=== PATIENT | male | born 1985 | race Two or more races ===

== ENCOUNTER 2020-01-04 15:40 | Inpatient (IN) | payer MEDICAID ==
[~2020-01-04] VITALS: Ht 177.8 cm; Wt 88.0 kg
--- NOTE | 2020-01-04 16:00 | NUR ---
ED Nurse Note: pt was brought in by ambulance from home d/t tonic clonic seizure that lasted for 10 secs today at 1445. Pt is AOx4, calm and cooperative, noted to be vomiting upon arrival. Per EMS, (-) head nor oral trauma, but pt had loss of consciousness. Pt's VSS, on RA, afebrile on triage. Pt arrived with an IV on LT forearm 18G. Placed on bed, safety measures in placed, seizure pads on bilateral rails. will continue to monitor.
--- NOTE | 2020-01-04 16:01 | NUR ---
ED Nurse Note: pt was taken to CT on stable condition.
--- NOTE | 2020-01-04 16:02 | Emergency Room Report ---
History of Present Illness General Chief Complaint: Seizure Source: Patient Present Illness HPI Disclaimer: Please note that this report is being documented using DRAGON technology. This can lead to erroneous entry secondary to incorrect interpretation by the dictating instrument. HPI: Is a 34-year-old male presenting to emergency department after suspected seizure. 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 He has no recollection of the events but was told by staff that he had generalized convulsions was unconscious for several minutes. Unknown whether or not there was a head injury. EMS found him awake and alert. He denies prior history of seizure though states he had another loss of conscious many years ago without a formal diagnosis. He drinks alcohol daily and has been on a bit of a binge over the past week. Last alcohol intake approximately 24 hours ago. Denies prior history of alcohol withdrawal seizures or delirium tremens. Denies other drug use. Denies medical history but states he is "prediabetic." Glucose was elevated on arrival. Patient also reports ulcerations and infections over the toes. He states there is from prolonged standing and walking. Has not yet sought medical attention. Denies recent fever, chills, cough, shortness of breath, chest pain, palpitations. He reports nausea but no vomiting. Reports minor generalized headache without vision changes. 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 No scalp or face hematomas, lacerations or abrasions. No signs of external trauma. EOMI. PERRLA. Visual dumont are full. No nystagmus. Facial expressions are symmetrical. No facial droop. Cardiovascular: RRR. S1 and S2 normal. No murmur appreciated Resp: Normal work of breathing. No cough, wheezing or crackles appreciated Abdomen: Abdomen is soft, nondistended. Nontender Skin: Ulcerations over the third and fourth toe on the left foot as well as over the pad of the left great toe with surrounding edema, erythema and areas of purulence. MSK: Normal tone and bulk. Moving all extremities. No obvious deformity. There is no drift in the upper or lower extremities bilaterally. Neuro: Awake and alert. Mentating appropriately. Facial expression symmetrical. No dysarthria, no ataxia on [id number] or vgpk-jl-[id number] testing. Sensation to light touch is intact over the upper and lower extremities. The patient has intact speech with good repetition, comprehension. Fund of knowledge is full. Procedures Critical Care Time Critical Care Time Total critical care time: Approximately 31 minutes Due to a high probability of clinically significant, life threatening deterioration, the patient required the highest level of preparedness to intervene emergently and I personally spent this critical care time directly and personally managing the patient. This critical care time included obtaining a history, examining the patient, pulse oximetry, ordering and reviewing studies , ordering treatments, evaluating response to treatment and updating management plan as needed, frequent reassessment and discussion with other providers as well as arranging for ultimate disposition. This critical to care time was performed to assess and manage the high probability of life-threatening deterioration that could result in multiorgan failure. This critical care time is separate from the separately billable procedures and treating other patients. Medical Decision Making Diagnostic Impression: Primary Impression: Seizure Additional Impressions: Alcohol abuse Cellulitis of lower extremity ER Course Is a 34-year-old male presenting for evaluation of seizure. Differential includes was not limited to new onset seizure, intracranial mass, electrolyte abnormality, alcohol withdrawal, substance abuse, cellulitis, arrhythmia, syncopal episode, dehydration to name a few. He is returned to his neurologic baseline without focal deficits. Unknown whether or not there was a head injury and given that the patient's first-time seizure will obtain CT scan of the head as well as broad labs including tox screen. Lower extremities appear to have cellulitis though will obtain x-ray to rule out gas-forming lesions. Patient will be started on antibiotics, Keppra, benzodiazepines for suspected alcohol withdrawal seizure. He will require admission. 1800: Labs returned largely within normal limits though the patient did have opiates in his system which he now admits to taking Vicodin from a friend for the pain in his foot. Radiologist concern for possible osteomyelitis the patient had blood cultures drawn and was given vancomycin in addition to the ceftriaxone. Dr. Canela consulted regarding wound care and evaluation for osteomyelitis. CT scan of the head returned unremarkable. Labs Show normal white count, electrolytes and renal function within normal limits. AST elevated consistent with his alcohol abuse history. Bilirubin slightly elevated as is alkaline phosphatase. Urine shows white cells but few bacteria. Patient will be admitted for evaluation of lower extremity wounds with possible osteomyelitis, new onset versus alcohol withdrawal seizures. He was given Keppra and Ativan in the ED. Will admit to telemetry to panel physician, Dr. Isidro Laboratory Tests Test 01/04/20 15:55 01/04/20 16:30 White Blood Count 5.0 K/UL (4.8-10.8) Red Blood Count 4.11 M/UL (4.70-6.10) L Hemoglobin 13.8 G/DL (14.2-18.0) L Hematocrit 40.1 % (42.0-52.0) L Mean Corpuscular Volume 98 FL (80-99) Mean Corpuscular Hemoglobin 33.5 PG (27.0-31.0) H Mean Corpuscular Hemoglobin Concent 34.4 G/DL (32.0-36.0) Red Cell Distribution Width 13.6 % (11.6-14.8) Platelet Count 89 K/UL (150-450) L Mean Platelet Volume 9.6 FL (6.5-10.1) Neutrophils (%) (Auto) 85.3 % (45.0-75.0) H Lymphocytes (%) (Auto) 8.1 % (20.0-45.0) L Monocytes (%) (Auto) 4.6 % (1.0-10.0) Eosinophils (%) (Auto) 0.4 % (0.0-3.0) Basophils (%) (Auto) 1.5 % (0.0-2.0) Sodium Level 133 MMOL/L (136-145) L Potassium Level 4.0 MMOL/L (3.5-5.1) Chloride Level 97 MMOL/L (98-107) L Carbon Dioxide Level 28 MMOL/L (21-32) Anion Gap 8 mmol/L (5-15) Blood Urea Nitrogen 12 mg/dL (7-18) Creatinine 1.0 MG/DL (0.55-1.30) Estimated Glomerular Filtration Rate > 60 mL/min (>60) Glucose Level 197 MG/DL (74-106) H Calcium Level 8.8 MG/DL (8.5-10.1) Total Bilirubin 1.1 MG/DL (0.2-1.0) H Direct Bilirubin 0.5 MG/DL (0.0-0.3) H Aspartate Amino Transferase (AST) 113 U/L (15-37) H Alanine Aminotransferase (ALT) 70 U/L (12-78) Alkaline Phosphatase 252 U/L (46-116) H Total Protein 9.3 G/DL (6.4-8.2) H Albumin 3.3 G/DL (3.4-5.0) L Globulin 6.0 g/dL Albumin/Globulin Ratio 0.6 (1.0-2.7) L Serum Alcohol < 3 mg/dL Urine Color Yellow Urine Appearance Slightly cloudy Urine pH 8 (4.5-8.0) Urine Specific [place] 1.030 (1.005-1.035) Urine Protein 3+ (NEGATIVE) H Urine Glucose (UA) Negative (NEGATIVE) Urine Ketones 1+ (NEGATIVE) H Urine Blood 3+ (NEGATIVE) H Urine Nitrite Negative (NEGATIVE) Urine Bilirubin Negative (NEGATIVE) Urine Urobilinogen 1 MG/DL (0.0-1.0) H Urine Leukocyte Esterase 1+ (NEGATIVE) H Urine RBC 2-4 /HPF (0 - 0) H Urine WBC 5-10 /HPF (0 - 0) H Urine Squamous Epithelial Cells Occasional /LPF Urine Bacteria Few /HPF (NONE) Urine Sperm Many /LPF (NONE) Urine Opiates Screen Positive (NEGATIVE) H Urine Barbiturates Screen Negative (NEGATIVE) Phencyclidine (PCP) Screen Negative (NEGATIVE) Urine Amphetamines Screen Negative (NEGATIVE) Urine Benzodiazepines Screen Negative (NEGATIVE) Urine Cocaine Screen Negative (NEGATIVE) Urine Marijuana (THC) Screen Negative (NEGATIVE) EKG Diagnostic Results EKG Time: 15:50 Rate: normal Rhythm: NSR ST Segments: no acute changes Other Impression Sinus rhythm, normal axis, normal intervals, no ST segment changes. Inferior Q waves. Rhythm Strip Diag. Results Rhythm Strip Time: 15:50 EP Interpretation: yes Rate: 80s Rhythm: NSR, no PVC's, no ectopy Other X-Ray Diagnostic Results Other X-Ray Diagnostic Results : X-Ray ordered: Right foot # of Views/Limited Vs Complete: Complete Indication: Pain EP Interpretation: Yes Interpretation: no dislocation, other - Evidence of subacute fracture in the distal phalanx third toe, no obvious subcutaneous gas Impression: Other - Subacute fracture, soft tissue swelling, no gas appreciated Electronically Signed by: Electronically signed by Dr. Donaldo Angelo CT/MRI/US Diagnostic Results CT/MRI/US Diagnostic Results : Impression CT head Impression: No evidence of acute intracranial hemorrhage, mass effect or cortical edema. MRI may be obtained for more sensitive evaluation as clinically indicated. Dictated By: Bienvenido Wakefield M.D. Electronically Signed By: Bienvenido Wakefield M.D. Signed Date/Time 01/04/20 [id number] CC: Donaldo Angelo MD Last Vital Signs Date Time Temp Pulse Resp B/P (MAP) Pulse Ox O2 Delivery O2 Flow Rate FiO2 01/04/20 15:48 97.7 107 18 139/99 (112) 98 Room Air Disposition: ADMITTED INPATIENT Condition: Serious Scripts No Active Prescriptions or Reported Meds Donaldo Angelo MD Jan 04, 2020 16:02
[2020-01-04 16:07] VITALS: BP 139/99
[2020-01-04 16:07] LABS: HEMATOCRIT 40.1 % (42.0-52.0); HEMOGLOBIN 13.8 G/DL (14.2-18.0); MEAN CORPUSCULAR VOLUME 98 FL (80-99); PLATELET COUNT 89 K/UL (150-450); RED BLOOD COUNT 4.11 M/UL (4.70-6.10); RED CELL DISTRIBUTION WIDTH 13.6 % (11.6-14.8)
[2020-01-04] MEDS ORDERED: LORazepam 1mg tab ORAL ONE (16:15)
[2020-01-04] MEDS ORDERED: cefTRIAXone 1 GM in NS 55 ML IVPB ONE (16:15)
[2020-01-04] MEDS ORDERED: levETIRAcetam 1,000mg/NS100ml 100 ML IVPB ONE (16:15)
--- NOTE | 2020-01-04 16:15 | NUR ---
ED Nurse Note: x-ray at bedside.
--- NOTE | 2020-01-04 16:16 | Diagnostic Imaging Report ---
Indication: Seizure Technique: Continuous helical CT scanning of the head was performed utilizing automated exposure control without intravenous contrast material. Axial and coronal reconstructions were obtained. Comparison: None CT dose: Total DLP 1021.9 mGycm; CTDI vol 53.4 mGy Findings: There is no acute intracranial hemorrhage, mass effect or cortical edema. The ventricles, cisterns and sulci are within normal limits for age. Visualized mastoid air cells and paranasal sinuses are unremarkable. No focal lesions of the bony calvarium or soft tissues of the scalp are seen. Impression: No evidence of acute intracranial hemorrhage, mass effect or cortical edema. MRI may be obtained for more sensitive evaluation as clinically indicated. The CT scanner at [facility] is accredited by the [employer] and the scans are performed using protocols designed to limit radiation exposure to as low as reasonably achievable to attain images of sufficient resolution adequate for diagnostic evaluation.
[2020-01-04 16:34] LABS: ANION GAP 8 mmol/L (5-15); BASOPHILS % (AUTO) 1.5 % (0.0-2.0); BLOOD UREA NITROGEN 12 mg/dL (7-18); CALCIUM 8.8 MG/DL (8.5-10.1); CARBON DIOXIDE 28 MMOL/L (21-32); CHLORIDE 97 MMOL/L (98-107); EOSINOPHILS % (AUTO) 0.4 % (0.0-3.0); LYMPHOCYTES % (AUTO) 8.1 % (20.0-45.0); MONOCYTES % (AUTO) 4.6 % (1.0-10.0); NEUTROPHILS % (AUTO) 85.3 % (45.0-75.0); SODIUM 133 MMOL/L (136-145)
--- NOTE | 2020-01-04 16:37 | NUR ---
ED Nurse Note: noted swelling on bilateral lower extremites, LT foot toe noted with swelling and pus, non-draining.
[2020-01-04 16:41] LABS: APPEARANCE,URINE SLIGHTLY CLOUDY; BILIRUBIN, URINE NEGATIVE (NEGATIVE); GLUCOSE, URINE (UA) NEGATIVE (NEGATIVE); KETONES,URINE 1+ (NEGATIVE); LEUKOCYTE ESTERASE ,URINE 1+ (NEGATIVE); NITRITE,URINE NEGATIVE (NEGATIVE); PH,URINE 8 (4.5-8.0); PROTEIN,URINE 3+ (NEGATIVE); UROBILINOGEN,URINE 1 MG/DL (0.0-1.0)
[2020-01-04 16:45] LABS: ALANINE AMINOTRANSFERASE 70 U/L (12-78); ALBUMIN 3.3 G/DL (3.4-5.0); ALBUMIN/GLOBULIN RATIO 0.6 (1.0-2.7); ALKALINE PHOSPHATASE 252 U/L (46-116); ASPARTATE AMINO TRANSFERASE 113 U/L (15-37); BILIRUBIN,TOTAL 1.1 MG/DL (0.2-1.0)
--- NOTE | 2020-01-04 16:45 | Diagnostic Imaging Report ---
Indication: Foot pain Technique: XRAY Foot Complete R Comparison: None Findings: Extensive atherosclerotic vascular calcifications. There is swelling of the third digit. There is abnormal fragmentation of the third distal phalanx. There is no radiopaque foreign body. Lisfranc alignment of the foot is maintained. IMPRESSION: Swelling of the third digit with abnormal fragmentation of the third distal phalanx which may represent sequela of injury or infection/osteomyelitis. Correlation with history is recommended. Consider further evaluation with MRI as clinically indicated. Extensive atherosclerotic vascular calcifications.
[2020-01-04 16:52] LABS: BILIRUBIN,DIRECT 0.5 MG/DL (0.0-0.3)
[2020-01-04 16:57] LABS: COLOR,URINE YELLOW
[2020-01-04] MEDS ORDERED: Vancomycin 1 GM in NS 275 ML IVPB ONE (17:15)
--- NOTE | 2020-01-04 17:47 | NUR ---
ED Nurse Note: culture collected, sent to labs.
[2020-01-04 17:51] VITALS: BP 132/91
--- NOTE | 2020-01-04 18:58 | NUR ---
TRANSFER TO TELEMETRY UNIT: Patient transferred to Telemetry Unit as ordered, per Dr. Isidro. Report given to JONATHON Echeverria. Belongings and medications given to receiving nurse. Family and or S/O informed of transfer. Pt was transferred on stable condition.
--- NOTE | 2020-01-04 19:29 | NUR ---
HAND-OFF: Report given to Brittany rn. Endorsed patient and report.
--- NOTE | 2020-01-04 19:30 | NUR ---
NURSE NOTES: Received pt and report from JONATHON MUHAMMAD. Observed pt resting in bed with both eyes closed; arousable to voice. Pt is A/Ox4. monitoring analyst is in placed, IV site intact, asymptomatic, and patent. Seizure precaution noted; side rails padded, oxygen and suction at bedside. Bed is in the lowest position and locked. Call light and bedside table is within reach. No seizures or signs/symptoms of acute distress noted at this time. Will contact Dr. Isidro for admission orders.
[2020-01-04 20:00] VITALS: BP 127/67
--- NOTE | 2020-01-04 20:56 | NUR ---
NURSE NOTES: Received admission orders from Dr Isidro. Will not and carry out.
[2020-01-04] MEDS ORDERED: LORazepam Inj 2mg/ml 1ml IV PRN (21:15)
--- NOTE | 2020-01-04 21:47 | NUR ---
NURSE NOTES: Dr Isidro notified about stat venous duplex study. Per venous duplex Mansi crow, if pt was recently admitted, per protocol the stat venous duplex will be done in the am. Pt asymptomatic at this time. Will monitor pt.
[2020-01-05] VITALS: BP 133/76
[2020-01-05 04:00] VITALS: BP 140/89
[2020-01-05] MEDS: Vancomycin 1.25gm/NS Premix q24h IVPB SCH ×2 (04:23→17:45)
[2020-01-05] MEDS: NovoLOG Insulin Flexpen SUBQ SCH ×4 (06:30→21:00)
--- NOTE | 2020-01-05 07:16 | NUR ---
HAND-OFF: Report given to JONATHON Mg and JONATHON Singh, endorsed plan of care.
[2020-01-05 07:24] LABS: HEMATOCRIT 39.8 % (42.0-52.0); HEMOGLOBIN 13.2 G/DL (14.2-18.0); MEAN CORPUSCULAR VOLUME 99 FL (80-99); PLATELET COUNT 98 K/UL (150-450); RED BLOOD COUNT 4.04 M/UL (4.70-6.10); WHITE BLOOD COUNT 5.7 K/UL (4.8-10.8)
--- NOTE | 2020-01-05 07:36 | NUR ---
NURSE NOTES: Received pt and report from Brittany and JONATHON Thomas. Observed pt resting in bed; arousable to voice. Pt is A/Ox4. Seizure precaution noted; side rails padded, oxygen and suction at bedside. Bed is in the lowest position and locked. Call light and bedside table is within reach. No signs/symptoms of acute distress noted at this time.
[2020-01-05 07:50] LABS: ALANINE AMINOTRANSFERASE 61 U/L (12-78); ALBUMIN 2.9 G/DL (3.4-5.0); ALBUMIN/GLOBULIN RATIO 0.5 (1.0-2.7); ALKALINE PHOSPHATASE 212 U/L (46-116); ANION GAP 8 mmol/L (5-15); ASPARTATE AMINO TRANSFERASE 98 U/L (15-37); BILIRUBIN,TOTAL 0.9 MG/DL (0.2-1.0); BLOOD UREA NITROGEN 7 mg/dL (7-18); CALCIUM 8.7 MG/DL (8.5-10.1); CARBON DIOXIDE 26 MMOL/L (21-32); CHLORIDE 103 MMOL/L (98-107); CREATININE 0.9 MG/DL (0.55-1.30); POTASSIUM 3.4 MMOL/L (3.5-5.1); SODIUM 137 MMOL/L (136-145)
[2020-01-05 08:00] VITALS: BP 106/67
[2020-01-05] MEDS: HYDROcodone/Acetamin 5/325 tab ORAL PRN ×3 (08:51→21:55)
--- NOTE | 2020-01-05 09:45 | History and Physical Report ---
DATE OF ADMISSION: 01/04/2020 REASON FOR ADMISSION: Alcoholic-related seizures, cellulitis, possible osteomyelitis. HISTORY OF PRESENT ILLNESS: This is a 34-year-old male brought in for suspected seizure. 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 The patient does admit to alcohol use. No loss of consciousness. No head trauma. The patient has been bingeing last week. The patient notes that he may be a prediabetic. On arrival, the patient is otherwise stable. The patient had no seizures overnight. PAST MEDICAL HISTORY: Notable for prediabetes, alcohol use. PAST SURGICAL HISTORY: Denies. ALLERGIES: None reported. SOCIAL HISTORY: Does admit to daily alcohol use. Works in a liquor store. PHYSICAL EXAMINATION: GENERAL: Well-developed male, comfortable at present. VITAL SIGNS: Stable. LUNGS: Otherwise clear. CARDIAC: S1 and S2. Regular rate and rhythm. ABDOMEN: Otherwise soft, nontender. EXTREMITIES: No edema. LABORATORY DATA: Reviewed. DIAGNOSTIC DATA: X-rays of the foot shows swelling of the third digit with abnormal fragmentation with concern for possible osteomyelitis. Head CT is otherwise negative. IMPRESSION: Alcoholic-related seizures, postseizure pain, possible osteomyelitis, possible alcohol withdrawal. RECOMMENDATION: Monitor for seizures. Ativan p.r.n. IV antibiotics for now. We will obtain MRI of the foot to confirm concern for osteo. ID evaluation and surgical evaluation as needed. We will follow clinically for further changes. Jaya Isidro M.D. DR: IRMA JOB#: [id number] CC:
--- NOTE | 2020-01-05 10:09 | Diagnostic Imaging Report ---
Indication: Leg edema Technique: Venous Duplex Scan Wojciech Leg Comparison: None. Findings: Bilateral duplex and compression ultrasound of the lower cervical veins demonstrates the femoral and popliteal veins to be normal in caliber and normally compressible bilaterally. There is no evidence of thrombosis. Normal respiratory variation and augmentation is noted. The demonstrated calf veins also demonstrate normal duplex evaluation and compressibility. Impression: Normal. No evidence of lower extremity deep vein thrombosis.
[2020-01-05 12:00] VITALS: BP 129/67
--- NOTE | 2020-01-05 13:58 | Consultation ---
History of Present Illness General Date patient seen: Jan 05, 2020 Reason for Hospitalization: Seizure Present Illness HPI This is a pleasant 34-year-old male presenting to emergency department after suspected seizure. Patient works as a managing broker in a liquor store states he was at work when suddenly he had a loss of conscious. He has no recollection of the events but was told by staff that he had generalized convulsions was unconscious for several minutes. Unknown whether or not there was a head injury. EMS found him awake and alert. He denies prior history of seizure though states he had another loss of conscious many years ago without a formal diagnosis. He drinks alcohol daily and has been on a bit of a binge over the past week. Last alcohol intake approximately 24 hours ago. Denies prior history of alcohol withdrawal seizures or delirium tremens. Denies other drug use. Denies medical history but states he is "prediabetic." Glucose was elevated on arrival. Patient also reports ulcerations and infections over the toes. He states there is from prolonged standing and walking. Has not yet sought medical attention. Denies recent fever, chills, cough, shortness of breath, chest pain, palpitations. He reports nausea but no vomiting. Reports minor generalized headache without vision changes. surgery called toe valuate and assist with care. patient seen, chart reviewed, patient examined. Allergies: Coded Allergies: No Known Allergies (Unverified , 01/04/20) COVID-19 Screening Contact w/high risk pt: No Experienced COVID-19 symptoms?: No Medication History No Active Prescriptions or Reported Meds Patient History History Provided By: Patient, PMD Healthcare decision maker Resuscitation status Advanced Directive on File Past Medical/Surgical History Past Medical/Surgical History: (1) Cellulitis of lower extremity (2) Alcohol abuse (3) Seizure Review of Systems Review of Symptoms General ROS: no weight loss or fever Psychological ROS: no depression or mood changes, no memory loss Ophthalmic ROS: no visual changes or eye irritation ENT ROS: no nasal congestion, hearing loss, dizziness Allergy and Immunology ROS: no allergic symptoms or urticaria Hematological and Lymphatic ROS: no swollen glands, unusual bleeding or bruising Endocrine ROS: no polyuria, polydipsia, weight changes, temperature intolerance Respiratory ROS: no cough, shortness of breath, or wheezing Cardiovascular ROS: no chest pain or dyspnea on exertion Gastrointestinal ROS: denies abdominal pain, bright red blood in stool. Musculoskeletal ROS: no myalgias or arthralgias Neurological ROS: no TIA or stroke symptoms Dermatological ROS: no new or changing skin lesions, rashes or pruritis Physical Exam Physical Exam General appearance: alert, cooperative, no distress, appears stated age Head: Normocephalic, without obvious abnormality, atraumatic Eyes: conjunctivae/corneas clear. PERRL, EOM's intact. Fundi benign Throat: Lips, mucosa, and tongue normal. Teeth and gums normal Neck: supple, symmetrical, trachea midline, no adenopathy, thyroid: not enlarged, symmetric, no tenderness/mass/nodules, no carotid bruit and no JVD Lungs: clear to auscultation bilaterally Heart: regular rate and rhythm, S1, S2 normal, no murmur, click, rub or gallop Abdomen: soft, non-tender. Bowel sounds normal. No masses, no organomegaly Extremities: extremities left foot with cellulitis. pulses okay. decreased sensation. ulcer on plantar aspect. no abscess. no drainage Pulses: 2+ and symmetric Skin: Skin color, texture, turgor normal. No rashes or lesions Neurologic: Grossly normal Last 24 Hour Vital Signs Date Time Temp Pulse Resp B/P (MAP) Pulse Ox O2 Delivery O2 Flow Rate FiO2 01/05/20 12:00 97.7 18 129/67 (87) 96 01/05/20 12:00 69 01/05/20 09:21 97.7 01/05/20 09:00 Room Air 01/05/20 08:00 99.0 70 20 106/67 (80) 95 01/05/20 08:00 70 01/05/20 04:00 81 01/05/20 04:00 98.8 86 20 140/89 (106) 96 01/05/20 00:00 98.5 80 18 133/76 (95) 97 01/05/20 00:00 74 01/04/20 21:00 Room Air 01/04/20 20:00 97.8 88 20 127/67 (87) 96 01/04/20 20:00 63 01/04/20 19:24 Room Air 01/04/20 18:58 97.7 78 20 130/90 98 Room Air 01/04/20 17:51 97.7 81 20 132/91 98 Room Air 01/04/20 16:07 107 18 Room Air 01/04/20 16:07 97.7 18 139/99 98 Room Air 01/04/20 15:48 97.7 107 18 139/99 (112) 98 Room Air Intake and Output 01/04/20 01/05/20 19:00 07:00 Intake Total 155 ml 950 ml Output Total 1000 ml Balance 155 ml -50 ml Intake Oral 150 ml IV Total 155 ml 800 ml Output Urine Total 1000 ml Laboratory Tests Test 01/04/20 15:55 01/04/20 16:30 01/04/20 21:02 01/05/20 06:30 White Blood Count 5.0 K/UL (4.8-10.8) 5.7 K/UL (4.8-10.8) Red Blood Count 4.11 M/UL (4.70-6.10) L 4.04 M/UL (4.70-6.10) L Hemoglobin 13.8 G/DL (14.2-18.0) L 13.2 G/DL (14.2-18.0) L Hematocrit 40.1 % (42.0-52.0) L 39.8 % (42.0-52.0) L Mean Corpuscular Volume 98 FL (80-99) 99 FL (80-99) Mean Corpuscular Hemoglobin 33.5 PG (27.0-31.0) H 32.8 PG (27.0-31.0) H Mean Corpuscular Hemoglobin Concent 34.4 G/DL (32.0-36.0) 33.2 G/DL (32.0-36.0) Red Cell Distribution Width 13.6 % (11.6-14.8) 13.0 % (11.6-14.8) Platelet Count 89 K/UL (150-450) L 98 K/UL (150-450) L Mean Platelet Volume 9.6 FL (6.5-10.1) 8.6 FL (6.5-10.1) Neutrophils (%) (Auto) 85.3 % (45.0-75.0) H % (45.0-75.0) Lymphocytes (%) (Auto) 8.1 % (20.0-45.0) L % (20.0-45.0) Monocytes (%) (Auto) 4.6 % (1.0-10.0) % (1.0-10.0) Eosinophils (%) (Auto) 0.4 % (0.0-3.0) % (0.0-3.0) Basophils (%) (Auto) 1.5 % (0.0-2.0) % (0.0-2.0) Sodium Level 133 MMOL/L (136-145) L 137 MMOL/L (136-145) Potassium Level 4.0 MMOL/L (3.5-5.1) 3.4 MMOL/L (3.5-5.1) L Chloride Level 97 MMOL/L (98-107) L 103 MMOL/L (98-107) Carbon Dioxide Level 28 MMOL/L (21-32) 26 MMOL/L (21-32) Anion Gap 8 mmol/L (5-15) 8 mmol/L (5-15) Blood Urea Nitrogen 12 mg/dL (7-18) 7 mg/dL (7-18) Creatinine 1.0 MG/DL (0.55-1.30) 0.9 MG/DL (0.55-1.30) Estimat Glomerular Filtration Rate > 60 mL/min (>60) > 60 mL/min (>60) Glucose Level 197 MG/DL (74-106) H 90 MG/DL (74-106) # Calcium Level 8.8 MG/DL (8.5-10.1) 8.7 MG/DL (8.5-10.1) Total Bilirubin 1.1 MG/DL (0.2-1.0) H 0.9 MG/DL (0.2-1.0) Direct Bilirubin 0.5 MG/DL (0.0-0.3) H Aspartate Amino Transf (AST/SGOT) 113 U/L (15-37) H 98 U/L (15-37) H Alanine Aminotransferase (ALT/SGPT) 70 U/L (12-78) 61 U/L (12-78) Alkaline Phosphatase 252 U/L (46-116) H 212 U/L (46-116) H Total Protein 9.3 G/DL (6.4-8.2) H 8.5 G/DL (6.4-8.2) H Albumin 3.3 G/DL (3.4-5.0) L 2.9 G/DL (3.4-5.0) L Globulin 6.0 g/dL 5.6 g/dL Albumin/Globulin Ratio 0.6 (1.0-2.7) L 0.5 (1.0-2.7) L Serum Alcohol < 3 mg/dL Urine Color Yellow Urine Appearance Slightly cloudy Urine pH 8 (4.5-8.0) Urine Specific [place] 1.030 (1.005-1.035) Urine Protein 3+ (NEGATIVE) H Urine Glucose (UA) Negative (NEGATIVE) Urine Ketones 1+ (NEGATIVE) H Urine Blood 3+ (NEGATIVE) H Urine Nitrite Negative (NEGATIVE) Urine Bilirubin Negative (NEGATIVE) Urine Urobilinogen 1 MG/DL (0.0-1.0) H Urine Leukocyte Esterase 1+ (NEGATIVE) H Urine RBC 2-4 /HPF (0 - 0) H Urine WBC 5-10 /HPF (0 - 0) H Urine Squamous Epithelial Cells Occasional /LPF Urine Bacteria Few /HPF (NONE) Urine Sperm Many /LPF (NONE) Urine Opiates Screen Positive (NEGATIVE) H Urine Barbiturates Screen Negative (NEGATIVE) Phencyclidine (PCP) Screen Negative (NEGATIVE) Urine Amphetamines Screen Negative (NEGATIVE) Urine Benzodiazepines Screen Negative (NEGATIVE) Urine Cocaine Screen Negative (NEGATIVE) Urine Marijuana (THC) Screen Negative (NEGATIVE) POC Whole Blood Glucose 99 MG/DL (74-106) Differential Total Cells Counted 100 Neutrophils % (Manual) 70 % (45-75) Lymphocytes % (Manual) 14 % (20-45) L Monocytes % (Manual) 12 % (1-10) H Eosinophils % (Manual) 3 % (0-3) Basophils % (Manual) 1 % (0-2) Band Neutrophils 0 % (0-8) Platelet Estimate Decreased L Platelet Morphology Normal Red Blood Cell Morphology Normal Test 01/05/20 06:32 POC Whole Blood Glucose Pending Height (Feet): 5 Height (Inches): 10.00 Weight (Pounds): 203 Medications Current Medications Medications (Trade) Dose Ordered Sig/Adria Route PRN Reason Start Time Stop Time Status Last Admin Dose Admin Acetaminophen (Tylenol) 650 mg Q4H PRN ORAL MILD PAIN/FEVER >100.5 01/04/20 21:15 02/03/20 21:14 01/05/20 04:36 Acetaminophen/ Hydrocodone Bitart ([place] 5/325) 1 tab Q4H PRN ORAL Moderate Pain (Pain Scale 4-6) 01/05/20 05:30 01/12/20 05:29 01/05/20 08:51 Al Hydroxide/Mg Hydroxide (Mylanta) 30 ml Q4H PRN ORAL heartburn 01/04/20 21:15 02/03/20 21:14 Dextrose (Dextrose 50%) 25 ml Q30M PRN IV Hypoglycemia 01/04/20 21:15 04/03/20 21:14 Dextrose (Dextrose 50%) 50 ml Q30M PRN IV Hypoglycemia 01/04/20 21:15 04/03/20 21:14 Heparin Sodium (Porcine) (Heparin 5000 units/ml) 5,000 units EVERY 12 HOURS SUBQ 01/05/20 21:00 02/19/20 20:59 UNV Insulin Aspart (NovoLOG) BEFORE MEALS AND HS SUBQ 01/05/20 06:30 04/04/20 06:29 Lorazepam (Ativan 2mg/ml 1ml) 1 mg Q1H PRN IV For Seizures 01/04/20 21:15 01/11/20 21:14 Ondansetron HCl (Zofran) 4 mg Q6H PRN IVP Nausea & Vomiting 01/04/20 21:15 02/03/20 21:14 Pantoprazole (Protonix) 40 mg DAILY ORAL 01/05/20 09:00 02/04/20 08:59 01/05/20 08:24 Sodium Chloride 1,000 ml @ 100 mls/hr Q10H IV 01/04/20 22:00 02/03/20 21:59 01/05/20 08:24 Vancomycin HCl (Vanco pharmacy to dose) 1 ea DAILY PRN MISC Per rx protocol 01/04/20 21:15 02/03/20 21:14 Vancomycin/Sodium Chloride 275 ml @ 183.333 mls/hr Q12H IVPB 01/05/20 05:00 01/10/20 04:59 01/05/20 04:23 Assessment/Plan Problem List: (1) Cellulitis of lower extremity Assessment & Plan: left foot with cellulitis. pulses okay. decreased sensation. ulcer on plantar aspect. no abscess. no drainage Pt presented on admission with multiple ulcerations to both feet.Ulcer Plantar L 1st metatarsal has punched out appearance, is michael with dry necrotic borders( L)1cm x (W)0.9cm. No odor or exudate noted. No erythema or fluctuance periwound. Pt stated wound previously had thick callused cap which pt stated he attempted to shave off with Callus removing device. Dry eschar noted to tips of L 2nd 3rd and 4th metatarsals. Dry eschar with slit noted to plantar L Hallux area. NO odor exudate or erythema noted. R 3rd metatarsal with joint deformity and full thickness ulcer at head of metatarsal(L)1.4cm x (W)1.6cm. Base of wound is necrotic centrally with surrounding michael base with scattered necrosis and an area of slough along plantar aspect of metatarsal. Borders are irregular and michael, extending along web space and along plantar aspect to base of metatarsal. No odor or exudate noted during wound assessment but dry exudate noted periwound. Also at base of R3rd metatarsal smaller wound that is michael and moist noted.(L)0.4cm x (W) 0.5cm. Pt stated having wounds for unspecified amt of time. Dry eschar noted to lateral R 1st metatarsal. No erythema ,exudate, or fluctuance periwound. A second,smaller ulcer noted to plantar base of R 1st metatarsal that is moist and michael . No erythema, odor,or fluctuance periwound. Dry eschar noted to plantar R hallux area. Pt cited multiple traumas to both feet over an unspecified period and admits to being lax in care of feet and inspecting his feet despite being aware of risks with Having diabetes and Neuropathy. Pt educated of risks vs benefits of good foot care, wearing proper footwear and inspecting feet daily.Pt also advised against removing calluses with sharp devices. Tx.Plan:Apply Betadine to wounds both feet. Cover with ABD Pads and wrap each foot with Kerlix Daily and prn. ICD Codes: L03.119 - Cellulitis of unspecified part of limb SNOMED: 209314958 (2) Alcohol abuse ICD Codes: F10.10 - Alcohol abuse, uncomplicated SNOMED: 62226783 (3) Seizure ICD Codes: R56.9 - Unspecified convulsions SNOMED: [id number] Antonio Canela Jan 05, 2020 13:58
[2020-01-05] MEDS ORDERED: Gadavist 7.5mMol/7.5ml vial IV PRN (14:15)
--- NOTE | 2020-01-05 14:35 | Diagnostic Imaging Report ---
Indication: Reason For Exam: PAIN Technique: MRI of the right forefoot performed utilizing T1 and STIR images in 3 months. Comparison: None. Findings: Examination demonstrates decreased fat signal in the soft tissues of the third toe. There is soft tissue swelling. Abnormal low T1 signal and high T2 signal is noted in the third middle and distal phalanges. The third proximal phalanx appears. The remaining osseous structures are normal. Marrow signal is otherwise normal. Remainder of exam is unremarkable. Impression: Osteomyelitis of the third middle and distal phalanges with extensive cellulitis of the third toe.
--- NOTE | 2020-01-05 15:00 | Consultation ---
DATE OF CONSULTATION: 01/05/2020 INFECTIOUS DISEASE CONSULTATION CONSULTING PHYSICIAN: Olvin Carbajal MD. REFERRING PHYSICIAN: Jaya Isidro MD. REASON FOR CONSULTATION: Leg cellulitis. HISTORY OF PRESENTING ILLNESS: This is a 34-year-old gentleman with history of diabetes and diabetic neuropathy, who comes in with pain in both his legs. He also had a seizure and an Infectious Disease consultation has been obtained for antibiotics. PAST MEDICAL HISTORY: 1. History of diabetes. 2. Diabetic neuropathy. SOCIAL HISTORY: He used to be a smoker. He drinks alcohol. No history of drug use. FAMILY HISTORY: Noncontributory. REVIEW OF SYSTEMS: RESPIRATORY: No fever, chills, cough, shortness of breath, or chest pain. CARDIAC: No chest pain. No palpitation. No dizziness. No syncope. GASTROINTESTINAL: No nausea. No vomiting. No abdominal pain or diarrhea. MUSCULOSKELETAL: He complains of bilateral leg pain. MEDICATIONS: As an inpatient, he is on Protonix, insulin, [place], vancomycin, Zofran, Ativan, Tylenol, and Mylanta. ALLERGIES: No known drug allergies. PHYSICAL EXAMINATION: VITAL SIGNS: Temperature 97.7, T-max of 99, pulse of 69, respiratory rate 18, blood pressure 129/67. O2 saturation of 96%. HEENT: Pupils are equally reactive to light and accommodation. Mouth appears clean without thrush. NECK: Supple. No adenopathy. No JVD. CARDIOVASCULAR: Regular rate and rhythm. No murmurs. LUNGS: Clear to auscultation bilaterally. No crackles. No wheezes. ABDOMEN: Soft, nontender. No organomegaly. EXTREMITIES: No cyanosis, no clubbing, no edema. Left foot big toe plantar aspect ulcer noted. Left leg erythema noted. Left foot plantar ulcer noted. Right third toe ulcer noted. Right foot plantar ulcer noted. ASSESSMENT: 1. This is a 34-year-old gentleman with history of diabetes, who comes in with right foot ulcers. Would be concerned regarding osteomyelitis as a possibility. 2. Diabetes. 3. Seizures. PLAN: 1. Continue IV vancomycin. 2. We will order an MRI of the right foot. 3. We will follow up the patient clinically. 4. We will order foot cultures. I would like to thank Dr. Isidro for this consultation. Olvin Carbajal M.D. DR: ARMIDA JOB#: [id number] CC:
[2020-01-05] MEDS ORDERED: Tubing IV Secondary IV ONE (15:23)
--- NOTE | 2020-01-05 15:31 | NUR ---
CASE MANAGEMENT:REVIEW 34 YR OLD MALE BIBA FROM WORK SI: SEIZURE. ALCOHOL ABUSE LOWER EXTREMITY CELLULITIS 97.7 107 18 139/99 98% ON RA NA-133 GLUCOSE+197 TBILI+1.1 DBILI+0.5 AST+113 IS: IV KEPPRA ATIVAN PO IV ROCEPHIN IV VANCOMYCIN CT HEAD BLOOD CX : TO TELEMETRY PLAN: MRI RT FOOT
[2020-01-05 16:00] VITALS: BP 120/77
--- NOTE | 2020-01-05 16:32 | NUR ---
NURSE NOTES:WOUND CARE NOTES:Pt presented on admission with multiple ulcerations to both feet.Ulcer Plantar L 1st metatarsal has punched out appearance, is michael with dry necrotic borders(L)1cm x (W)0.9cm. No odor or exudate noted. No erythema or fluctuance periwound. Pt stated wound previously had thick callused cap which pt stated he attempted to shave off with Callus removing device. Dry eschar noted to tips of L 2nd 3rd and 4th metatarsals. Dry eschar with slit noted to plantar L Hallux area. NO odor exudate or erythema noted. R 3rd metatarsal with joint deformity and full thickness ulcer at head of metatarsal(L)1.4cm x (W)1.6cm. Base of wound is necrotic centrally with surrounding michael base with scattered necrosis and an area of slough along plantar aspect of metatarsal. Borders are irregular and michael, extending along web space and along plantar aspect to base of metatarsal. No odor or exudate noted during wound assessment but dry exudate noted periwound. Also at base of R3rd metatarsal smaller wound that is michael and moist noted.(L)0.4cm x (W)0.5cm. Pt stated having wounds for unspecified amt of time. Dry eschar noted to lateral R 1st metatarsal. No erythema ,exudate, or fluctuance periwound. A second,smaller ulcer noted to plantar base of R 1st metatarsal that is moist and michael . No erythema, odor,or fluctuance periwound. Dry eschar noted to plantar R hallux area. Pt cited multiple traumas to both feet over an unspecified period and admits to being lax in care of feet and inspecting his feet despite being aware of risks with Having diabetes and Neuropathy. Pt educated of risks vs benefits of good foot care, wearing proper footwear and inspecting feet daily.Pt also advised against removing calluses with sharp devices. Tx.Plan:Apply Betadine to wounds both feet. Cover with ABD Pads and wrap each foot with Kerlix Daily and prn.
--- NOTE | 2020-01-05 19:20 | NUR ---
NURSE NOTES: Report received from JONATHON Singh. Patient AOx4. Able to communicate needs. No complaints of pain or discomfort during the shift. On room air, saturating well. Bed rails padded x2. Bed in lowest position, brakes engaged, bed alarm on. Call light placed within reach. Will continue to monitor.
--- NOTE | 2020-01-05 19:42 | NUR ---
HAND-OFF: Report given to ROXANE medina.
[2020-01-05 20:00] VITALS: BP 128/84
[2020-01-05] MEDS ORDERED: Heparin 5000 units/ml inj SUBQ SCH (21:00)
[2020-01-06] VITALS: BP 156/94
[2020-01-06 04:00] VITALS: BP 130/79
[2020-01-06] MEDS: HYDROcodone/Acetamin 5/325 tab ORAL PRN ×5 (04:00→23:33)
[2020-01-06] MEDS: NovoLOG Insulin Flexpen SUBQ SCH ×4 (05:29→20:26)
[2020-01-06] MEDS: Vancomycin 1.5gm/NS Premix IVPB SCH ×2 (06:07→14:03)
--- NOTE | 2020-01-06 06:57 | NUR ---
NURSE NOTES: Vitaliy, from MRI, confirmed that MRI of the R foot was done yesterday per Dr. Isidro's order. Will let Dr. Carbajal know that the MRI has resulted.
--- NOTE | 2020-01-06 07:39 | NUR ---
HAND-OFF: Report given to Chavo, RN and Mónica RN. Patient stable. Endorsed that MRI of the right foot was already done, and to relay the results to Dr. Carbajal. IVF running at a prescribed rate; IV atb still running. Plan of care endorsed.
--- NOTE | 2020-01-06 07:40 | NUR ---
NURSE NOTES: Received report from JULIANE Paulino. Pt is AOx4, stable and resting in bed. Pt IV on L wrist 22g, patent, intact and asymptomatic. RUE AV shunt. Pt reports 7/10 pain at this time, pain medication given at this time. Pt has no S/S or complaints of distress at this time. Pt instructed to call for help ambulating. Pt bed low and locked, and call light in reach. Will continue to monitor. Addendum: 01/06/20 at 0805 by Graciela Hernandez RN RN disregard, wrong Pt documentation.
[2020-01-06 08:00] VITALS: BP 139/76
--- NOTE | 2020-01-06 08:22 | General Progress Note ---
Assessment/Plan Assessment/Plan: Alcoholic-related seizures, postseizure pain, osteomyelitis, possible alcohol withdrawal. PLAN iv antibiotics ID to assist monitor for seizures impression, plan, and exam edited and reviewed in detail care discussed with RN Subjective Allergies: Coded Allergies: No Known Allergies (Unverified , 01/04/20) Subjective MRI + osteo Objective Last 24 Hour Vital Signs Date Time Temp Pulse Resp B/P (MAP) Pulse Ox O2 Delivery O2 Flow Rate FiO2 01/06/20 05:35 98.4 01/06/20 04:00 66 01/06/20 04:00 100.5 62 20 130/79 (96) 99 01/06/20 00:00 99.0 80 19 156/94 (114) 97 01/06/20 00:00 63 01/05/20 21:00 Room Air 01/05/20 20:00 58 01/05/20 20:00 97.9 67 20 128/84 (99) 97 01/05/20 16:00 97.9 20 120/77 (91) 95 01/05/20 16:00 77 01/05/20 12:00 97.7 18 129/67 (87) 96 01/05/20 12:00 69 01/05/20 09:21 97.7 01/05/20 09:00 Room Air Intake and Output 01/05/20 01/06/20 19:00 07:00 Intake Total 300 ml 120 ml Output Total 1450 ml 600 ml Balance -1150 ml -480 ml Intake Oral 300 ml 120 ml Output Urine Total 1450 ml 600 ml # Voids 4 2 Laboratory Tests 01/06/20 04:00: Vancomycin Level Trough 6.1 01/06/20 05:19: POC Whole Blood Glucose 123H Height (Feet): 5 Height (Inches): 10.00 Weight (Pounds): 203 Objective WDWN NAD clear breath sounds bilaterally without rhonchi or wheeze [id number] without MRG NABS nontender no HSM no CC mild edema foot nonfocal Jaya Isidro MD Jan 06, 2020 08:22
--- NOTE | 2020-01-06 08:57 | NUR ---
NURSE NOTES: Received report from Mónica/JONATHON Tony. Pt AOx4, stable and resting in bed supine. Pt complaint of pain 10/10 on R foot, pain radiating from top of toe to lower foot. Pt has no S/S or complaints of distress at this time. R and L FA 22g both asymptomatic, intact and patent. Pt bed low and locked, call light in reach and Pt education reinforced regarding fall risk. Pt verbalized understanding. Will continue to monitor.
--- NOTE | 2020-01-06 11:26 | NUR ---
NURSE NOTES: Bilateral lower extremity/foot wound bandage at this time. No drainage. Pt tolerated well.
[2020-01-06 12:00] VITALS: BP 122/67
--- NOTE | 2020-01-06 12:25 | Surgery Progress Note ---
Surgery Progress Note Subjective Additional Comments doing well labs okay comfortable no complaints dressings intact ambulatory is waiting to see work footage of his seizure. states he just one second woke up on the floor at work and cannot recall how Objective Last 24 Hour Vital Signs Date Time Temp Pulse Resp B/P (MAP) Pulse Ox O2 Delivery O2 Flow Rate FiO2 01/06/20 09:00 Room Air 01/06/20 08:57 98.4 01/06/20 08:00 97.9 71 18 139/76 (97) 97 01/06/20 08:00 63 01/06/20 05:35 98.4 01/06/20 04:00 66 01/06/20 04:00 100.5 62 20 130/79 (96) 99 01/06/20 00:00 99.0 80 19 156/94 (114) 97 01/06/20 00:00 63 01/05/20 21:00 Room Air 01/05/20 20:00 58 01/05/20 20:00 97.9 67 20 128/84 (99) 97 01/05/20 16:00 97.9 20 120/77 (91) 95 01/05/20 16:00 77 I&O Intake and Output 01/05/20 01/06/20 19:00 07:00 Intake Total 300 ml 120 ml Output Total 1450 ml 600 ml Balance -1150 ml -480 ml Intake Oral 300 ml 120 ml Output Urine Total 1450 ml 600 ml # Voids 4 2 Dressing: dry Wound: clean Cardiovascular: RSR Respiratory: clear Abdomen: soft, non-tender, present bowel sounds Extremities: edema, no tenderness, no cyanosis, pulses Laboratory Tests Test 01/06/20 04:00 01/06/20 05:19 01/06/20 12:15 Vancomycin Level Trough 6.1 ug/mL (5.0-12.0) POC Whole Blood Glucose 123 MG/DL (74-106) H 153 MG/DL (74-106) H Plan Problems: (1) Cellulitis of lower extremity Assessment & Plan: left foot with cellulitis. pulses okay. decreased sensation. ulcer on plantar aspect. no abscess. no drainage Pt presented on admission with multiple ulcerations to both feet.Ulcer Plantar L 1st metatarsal has punched out appearance, is michael with dry necrotic borders( L)1cm x (W)0.9cm. No odor or exudate noted. No erythema or fluctuance periwound. Pt stated wound previously had thick callused cap which pt stated he attempted to shave off with Callus removing device. Dry eschar noted to tips of L 2nd 3rd and 4th metatarsals. Dry eschar with slit noted to plantar L Hallux area. NO odor exudate or erythema noted. R 3rd metatarsal with joint deformity and full thickness ulcer at head of metatarsal(L)1.4cm x (W)1.6cm. Base of wound is necrotic centrally with surrounding michael base with scattered necrosis and an area of slough along plantar aspect of metatarsal. Borders are irregular and michael, extending along web space and along plantar aspect to base of metatarsal. No odor or exudate noted during wound assessment but dry exudate noted periwound. Also at base of R3rd metatarsal smaller wound that is michael and moist noted.(L)0.4cm x (W) 0.5cm. Pt stated having wounds for unspecified amt of time. Dry eschar noted to lateral R 1st metatarsal. No erythema ,exudate, or fluctuance periwound. A second,smaller ulcer noted to plantar base of R 1st metatarsal that is moist and michael . No erythema, odor,or fluctuance periwound. Dry eschar noted to plantar R hallux area. Pt cited multiple traumas to both feet over an unspecified period and admits to being lax in care of feet and inspecting his feet despite being aware of risks with Having diabetes and Neuropathy. Pt educated of risks vs benefits of good foot care, wearing proper footwear and inspecting feet daily.Pt also advised against removing calluses with sharp devices. Tx.Plan:Apply Betadine to wounds both feet. Cover with ABD Pads and wrap each foot with Kerlix Daily and prn.3 diet as tolerated strict DM control d/c planning outpatient neuro follow up for further testing (2) Alcohol abuse (3) Seizure Antonio Canela Jan 06, 2020 12:24
--- NOTE | 2020-01-06 14:19 | NUR ---
CASE MANAGEMENT:REVIEW 01/06/20 SI: SEIZURE. ALCOHOL ABUSE LOWER EXTREMITY CELLULITIS. QUESTIONABLE OSTEO 97.5 82 18 122/67 99% ON RA GLUCOSE+153 IS: IV VANCOMYCIN Q8HRS IVF@100/HR PROTONIX PO QD SS INSULIN AC+HS NORCO PO Q4HRS PRN : TELEMETRY STATUS
--- NOTE | 2020-01-06 14:21 | NUR ---
DISCHARGE PLANNING OSTEO OF TOE CURRENTLY ON VANCOMYCIN BUT WILL NEED ORAL ANTIBIOTICS FOR DISCHARGE DR BARAJAS WANTS TO WAIT FOR WOUND CULTURE RESULTS
[2020-01-06 16:00] VITALS: BP 155/89
--- NOTE | 2020-01-06 16:33 | Infectious Diseases Prog Note ---
Assessment/Plan Assessment/Plan ASSESSMENT: 1. Third right osteomyelitis & cellulitis 2. Diabetes with foot ulcer 3. Seizures. 4. Diabetic neuropathy PLAN: 1. Continue IV vancomycin. 2. We will follow foot cultures. Subjective ROS Limited/Unobtainable: No Constitutional: Reports: no symptoms Respiratory: Reports: no symptoms Cardiovascular: Reports: no symptoms Gastrointestinal/Abdominal: Reports: no symptoms Genitourinary: Reports: no symptoms Musculoskeletal: Reports: pain, other - in both feet Allergies: Coded Allergies: No Known Allergies (Unverified , 01/04/20) Objective Last 24 Hour Vital Signs Date Time Temp Pulse Resp B/P (MAP) Pulse Ox O2 Delivery O2 Flow Rate FiO2 01/06/20 16:00 64 01/06/20 14:42 97.5 01/06/20 12:00 97.5 69 18 122/67 (85) 99 01/06/20 12:00 82 01/06/20 09:00 Room Air 01/06/20 08:00 97.9 71 18 139/76 (97) 97 01/06/20 08:00 63 01/06/20 05:35 98.4 01/06/20 04:00 66 01/06/20 04:00 100.5 62 20 130/79 (96) 99 01/06/20 00:00 99.0 80 19 156/94 (114) 97 01/06/20 00:00 63 01/05/20 21:00 Room Air 01/05/20 20:00 58 01/05/20 20:00 97.9 67 20 128/84 (99) 97 Height (Feet): 5 Height (Inches): 10.00 Weight (Pounds): 200 General Appearance: no acute distress HEENT: mucous membranes moist Respiratory/Chest: lungs clear Cardiovascular: normal rate Abdomen: soft, non tender Extremities: other - mild pedal edema Skin: ulcers, other - both feet R>L Neurologic/Psychiatric: alert, oriented x 3, responsive Microbiology Date/Time Source Procedure Growth Status 01/04/20 17:20 Blood Blood Culture - Preliminary NO GROWTH AFTER 24 HOURS Resulted 01/04/20 17:00 Blood Blood Culture - Preliminary NO GROWTH AFTER 24 HOURS Resulted 01/05/20 19:00 Foot Right Gram Stain - Final Resulted 01/05/20 19:00 Wound Culture - Preliminary Staphylococcus Aureus Resulted Laboratory Tests Test 01/06/20 04:00 01/06/20 05:19 01/06/20 12:15 01/06/20 16:13 Vancomycin Level Trough 6.1 ug/mL (5.0-12.0) POC Whole Blood Glucose 123 MG/DL (74-106) H 153 MG/DL (74-106) H 105 MG/DL (74-106) Current Medications Medications (Trade) Dose Ordered Sig/Adria Route PRN Reason Start Time Stop Time Status Last Admin Dose Admin Acetaminophen (Tylenol) 650 mg Q4H PRN ORAL MILD PAIN/FEVER >100.5 01/04/20 21:15 02/03/20 21:14 01/06/20 05:05 Acetaminophen/ Hydrocodone Bitart ([place] 5/325) 1 tab Q4H PRN ORAL Moderate Pain (Pain Scale 4-6) 01/05/20 05:30 01/12/20 05:29 01/06/20 14:13 Al Hydroxide/Mg Hydroxide (Mylanta) 30 ml Q4H PRN ORAL heartburn 01/04/20 21:15 02/03/20 21:14 Dextrose (Dextrose 50%) 25 ml Q30M PRN IV Hypoglycemia 01/04/20 21:15 04/03/20 21:14 Dextrose (Dextrose 50%) 50 ml Q30M PRN IV Hypoglycemia 01/04/20 21:15 04/03/20 21:14 Gadobutrol (Gadavist) 7.5 mmol NOW PRN IV Radiology Procedure 01/05/20 14:15 01/09/20 14:04 Insulin Aspart (NovoLOG) BEFORE MEALS AND HS SUBQ 01/05/20 06:30 04/04/20 06:29 01/06/20 12:19 Lorazepam (Ativan 2mg/ml 1ml) 1 mg Q1H PRN IV For Seizures 01/04/20 21:15 01/11/20 21:14 Ondansetron HCl (Zofran) 4 mg Q6H PRN IVP Nausea & Vomiting 01/04/20 21:15 02/03/20 21:14 Pantoprazole (Protonix) 40 mg DAILY ORAL 01/05/20 09:00 02/04/20 08:59 01/06/20 08:18 Sodium Chloride 1,000 ml @ 100 mls/hr Q10H IV 01/04/20 22:00 02/03/20 21:59 01/06/20 14:01 Vancomycin HCl (Vanco pharmacy to dose) 1 ea DAILY PRN MISC Per rx protocol 01/04/20 21:15 02/03/20 21:14 Vancomycin/Sodium Chloride 275 ml @ 137.5 mls/ hr Q8H IVPB 01/06/20 06:00 01/11/20 05:59 01/06/20 14:03 Sae Duarte MD Jan 06, 2020 16:33
--- NOTE | 2020-01-06 18:50 | NUR ---
NURSE NOTES: MD made aware of potassium level of 3.4. Awaiting call back.
--- NOTE | 2020-01-06 18:56 | NUR ---
HAND-OFF: Report given to JULIANE Paulino. Pt stable and plan of care endorsed. Addendum: 01/06/20 at 1909 by Graciela Hernandez RN RN HAND-OFF: Report given to JONATHON Shi. Pt stable and plan of care endorsed.
--- NOTE | 2020-01-06 19:10 | NUR ---
NURSE NOTES: Received patient from JONATHON Owens. Patient AOx4. able to communicate needs. Breathing unlabored and even. On room air, saturating well. No episode of seizure noted at this time. IV site intact and IVf running at a prescribed rate. Both feet with dry intact dressing. Belongings placed within reach. Currently complaining of pain at this time, but not necessitating medication yet. Call light placed within reach. Bed in lowest position; brakes engaged and bed alarm on. Will continue to monitor. To be transferred to DC, awaiting bed.
[2020-01-06 20:00] VITALS: BP 163/99
--- NOTE | 2020-01-06 21:10 | NUR ---
HAND-OFF: Report given to JONATHON Shaw. On room air, saturating well. Transferred with 2 staff members. IV site flushed and patent upon transfer. Belongings placed within reach. Patient reoriented to room. Belongings list done. Bed in lowest position, brakes engaged, bed alarm on. No sign of acute distress or shortness of breath. Call light placed within reach.
--- NOTE | 2020-01-06 21:11 | NUR ---
NURSE NOTES: Received pt from tele. pt is awake,verbal, a&ox4. Iv is intact and asymptomatic. No sob,fever, cough and pain at the moment. seizure precautions implanted . Bed is in the lowest position,locked and call light within reach. We will keep monitoring the pt
[2020-01-06] MEDS ORDERED: LORazepam Inj 2mg/ml 1ml IV PRN (21:30)
[2020-01-06] MEDS ORDERED: Gadavist 7.5mMol/7.5ml vial IV PRN (21:30)
[2020-01-06] MEDS: Vancomycin 1.5gm/NS Premix 275 ML IVPB SCH (22:59)
[2020-01-07] VITALS: BP 153/95
--- NOTE | 2020-01-07 03:40 | NUR ---
NURSE NOTES: jason Candelaria from lab called and notified R foot wound culture is positive for MRSA. I will notify the doctor.
[2020-01-07 04:00] VITALS: BP 143/75
[2020-01-07] MEDS: Vancomycin 1.5gm/NS Premix 275 ML IVPB SCH ×3 (05:36→22:15)
[2020-01-07] MEDS: NovoLOG Insulin Flexpen SUBQ SCH ×4 (05:36→20:33)
--- NOTE | 2020-01-07 07:17 | NUR ---
NURSE HAND-OFF: Important Events on Shift:Found MRSA on R foot wound culture Patient Status: stable Diet: R Pending Orders: n/a Pending Results/Labs:n/a Pending MD notification: n/a Latest Vital Signs: Temperature 98.2 , Pulse 62 , B/P 143 /75 , Respiratory Rate 20 , O2 SAT 96 , Room Air, O2 Flow Rate . Vital Sign Comment: Latest Cottrell Fall Score: 35 Fall Risk: Medium Risk Safety Measures: Call light Within Reach, Bed Alarm Zone 2, Side Rails Side Rails x2, Bed position Low and Locked. Fall Precautions: Yellow Socks Yellow Gown Door Sign Patient Fall Education Report given to Kaushal/JONATHON Hebert.
--- NOTE | 2020-01-07 07:49 | NUR ---
NURSE NOTES: Report received from JONATHON Santo. Patient seen awake, alert and oriented. Sitting on side of bed eating breakfast. No s/sx of any SOB/Distress, no c/o any pain or gi/gu discomfort. IV site located on LFA gauge 22 saline lock and RFA gauge 22 PIV. Both IV sites inplace and intact, no s/sx of any swelling, warmth, or redness. Siderails padded for seizure prec. bed placed on lowest and locked position. Call light placed within reach and will continue to monitor.
[2020-01-07 08:00] VITALS: BP 131/95
[2020-01-07] MEDS: HYDROcodone/Acetamin 5/325 tab ORAL PRN ×4 (08:21→20:28)
[2020-01-07] MEDS ORDERED: Tubing IV Secondary IV ONE (08:43)
--- NOTE | 2020-01-07 10:37 | Surgery Progress Note ---
Surgery Progress Note Subjective Symptoms: improved, tolerating diet, voiding well, passing flatus, pain decreased Objective Last 24 Hour Vital Signs Date Time Temp Pulse Resp B/P (MAP) Pulse Ox O2 Delivery O2 Flow Rate FiO2 01/07/20 09:00 Room Air 01/07/20 08:00 98.1 68 19 131/95 (107) 96 01/07/20 04:00 98.2 62 20 143/75 (97) 96 01/07/20 00:03 99.5 01/07/20 00:00 98.9 65 20 153/95 (114) 98 01/06/20 21:00 Room Air 01/06/20 20:00 99.5 68 20 163/99 (120) 97 01/06/20 18:46 98.6 01/06/20 16:00 64 01/06/20 16:00 98.6 61 19 155/89 (111) 97 01/06/20 12:00 97.5 69 18 122/67 (85) 99 01/06/20 12:00 82 I&O Intake and Output 01/06/20 01/07/20 19:00 07:00 Intake Total 1850 ml 500 ml Output Total 1200 ml Balance 650 ml 500 ml Intake Oral 950 ml 500 ml IV Total 900 ml Output Urine Total 1200 ml # Voids 5 3 # Bowel Movements 1 Dressing: dry Wound: clean Cardiovascular: RSR Respiratory: clear Abdomen: soft, non-tender, present bowel sounds Extremities: edema, no tenderness, no cyanosis, pulses, other Laboratory Tests Test 01/06/20 12:15 01/06/20 16:13 01/07/20 04:45 POC Whole Blood Glucose 153 MG/DL (74-106) H 105 MG/DL (74-106) Vancomycin Level Trough 18.3 ug/mL (5.0-12.0) H Plan Problems: (1) Cellulitis of lower extremity Assessment & Plan: left foot with cellulitis. pulses okay. decreased sensation. ulcer on plantar aspect. no abscess. no drainage Pt presented on admission with multiple ulcerations to both feet.Ulcer Plantar L 1st metatarsal has punched out appearance, is michael with dry necrotic borders( L)1cm x (W)0.9cm. No odor or exudate noted. No erythema or fluctuance periwound. Pt stated wound previously had thick callused cap which pt stated he attempted to shave off with Callus removing device. Dry eschar noted to tips of L 2nd 3rd and 4th metatarsals. Dry eschar with slit noted to plantar L Hallux area. NO odor exudate or erythema noted. R 3rd metatarsal with joint deformity and full thickness ulcer at head of metatarsal(L)1.4cm x (W)1.6cm. Base of wound is necrotic centrally with surrounding michael base with scattered necrosis and an area of slough along plantar aspect of metatarsal. Borders are irregular and michael, extending along web space and along plantar aspect to base of metatarsal. No odor or exudate noted during wound assessment but dry exudate noted periwound. Also at base of R3rd metatarsal smaller wound that is michael and moist noted.(L)0.4cm x (W) 0.5cm. Pt stated having wounds for unspecified amt of time. Dry eschar noted to lateral R 1st metatarsal. No erythema ,exudate, or fluctuance periwound. A second,smaller ulcer noted to plantar base of R 1st metatarsal that is moist and michael . No erythema, odor,or fluctuance periwound. Dry eschar noted to plantar R hallux area. Pt cited multiple traumas to both feet over an unspecified period and admits to being lax in care of feet and inspecting his feet despite being aware of risks with Having diabetes and Neuropathy. Pt educated of risks vs benefits of good foot care, wearing proper footwear and inspecting feet daily.Pt also advised against removing calluses with sharp devices. Tx.Plan:Apply Betadine to wounds both feet. Cover with ABD Pads and wrap each foot with Kerlix Daily and prn.3 diet as tolerated strict DM control d/c planning outpatient neuro follow up for further testing (2) Alcohol abuse (3) Seizure RolaAntonio Jan 07, 2020 10:37
--- NOTE | 2020-01-07 11:54 | Infectious Diseases Prog Note ---
"Assessment/Plan Assessment/Plan antibiotics : vancomycin iv A 1. right 3rd toe cellulitis | osteomyelitis with MRSA 2. seizures 3. diabetes mellitus P 1. continue iv vancomycin 38 more days 2. cbc, bmp, vancomycin level q weekly 3. will follow up cultures Subjective Constitutional: Denies: fever, chills Respiratory: Denies: shortness of breath, dry cough Gastrointestinal/Abdominal: Denies: nausea, vomiting, diarrhea Musculoskeletal: Reports: pain - decreased Allergies: Coded Allergies: No Known Allergies (Unverified , 01/04/20) Objective Last 24 Hour Vital Signs Date Time Temp Pulse Resp B/P (MAP) Pulse Ox O2 Delivery O2 Flow Rate FiO2 01/07/20 09:00 Room Air 01/07/20 08:00 98.1 68 19 131/95 (107) 96 01/07/20 04:00 98.2 62 20 143/75 (97) 96 01/07/20 00:03 99.5 01/07/20 00:00 98.9 65 20 153/95 (114) 98 01/06/20 21:00 Room Air 01/06/20 20:00 99.5 68 20 163/99 (120) 97 01/06/20 18:46 98.6 01/06/20 16:00 64 01/06/20 16:00 98.6 61 19 155/89 (111) 97 01/06/20 12:00 97.5 69 18 122/67 (85) 99 01/06/20 12:00 82 Height (Feet): 5 Height (Inches): 10.00 Weight (Pounds): 200 Respiratory/Chest: lungs clear Cardiovascular: normal rate, regular rhythm, no gallop/murmur Abdomen: soft, non tender Extremities: no edema, other - right big toe swelling Microbiology Date/Time Source Procedure Growth Status 01/04/20 17:20 Blood Blood Culture - Preliminary NO GROWTH AFTER 48 HOURS Resulted 01/04/20 17:00 Blood Blood Culture - Preliminary NO GROWTH AFTER 48 HOURS Resulted 01/05/20 19:00 Foot Right Gram Stain - Final Complete 01/05/20 19:00 Wound Culture - Final Staphylococcus Aureus - Mrsa Complete Laboratory Tests Test 01/06/20 12:15 01/06/20 16:13 01/07/20 04:45 POC Whole Blood Glucose 153 MG/DL (74-106) H 105 MG/DL (74-106) Vancomycin Level Trough 18.3 ug/mL (5.0-12.0) H Current Medications Medications (Trade) Dose Ordered Sig/Adria Route PRN Reason Start Time Stop Time Status Last Admin Dose Admin Acetaminophen (Tylenol) 650 mg Q4H PRN ORAL MILD PAIN/FEVER >100.5 01/06/20 21:30 02/05/20 21:29 Acetaminophen/ Hydrocodone Bitart ([place] 5/325) 1 tab Q4H PRN ORAL Moderate Pain (Pain Scale 4-6) 01/06/20 21:30 01/12/20 05:29 01/07/20 08:21 Al Hydroxide/Mg Hydroxide (Mylanta) 30 ml Q4H PRN ORAL heartburn 01/06/20 21:30 02/05/20 21:29 Dextrose (Dextrose 50%) 25 ml Q30M PRN IV Hypoglycemia 01/06/20 21:45 04/03/20 21:14 Dextrose (Dextrose 50%) 50 ml Q30M PRN IV Hypoglycemia 01/06/20 21:45 04/03/20 21:14 Gadobutrol (Gadavist) 7.5 mmol NOW PRN IV Radiology Procedure 01/06/20 21:30 01/07/20 14:00 Insulin Aspart (NovoLOG) BEFORE MEALS AND HS SUBQ 01/07/20 06:30 04/04/20 06:29 Lorazepam (Ativan 2mg/ml 1ml) 1 mg Q1H PRN IV For Seizures 01/06/20 21:30 01/11/20 21:29 Ondansetron HCl (Zofran) 4 mg Q6H PRN IVP Nausea & Vomiting 01/06/20 21:30 02/05/20 21:29 Pantoprazole (Protonix) 40 mg DAILY ORAL 01/07/20 09:00 02/04/20 08:59 01/07/20 08:21 Sodium Chloride 1,000 ml @ 100 mls/hr Q10H IV 01/06/20 21:30 02/03/20 21:59 01/07/20 06:31 Vancomycin HCl (Vanco pharmacy to dose) 1 ea DAILY PRN MISC Per rx protocol 01/07/20 09:00 02/03/20 21:14 Vancomycin/Sodium Chloride 275 ml @ 137.5 mls/ hr Q8H IVPB 8/7/20 22:00 01/11/20 05:59 01/07/20 05:36 Olvin Carbajal MD Jan 07, 2020 11:54"
[2020-01-07 12:00] VITALS: BP 136/83
[2020-01-07 16:00] VITALS: BP 137/93
--- NOTE | 2020-01-07 16:06 | Pulmonology Progress Note ---
Subjective ROS Limited/Unobtainable: No Constitutional: Denies: fever, chills Gastrointestinal/Abdominal: Denies: nausea, vomiting, diarrhea Musculoskeletal: Reports: pain - decreased Allergies: Coded Allergies: No Known Allergies (Unverified , 01/04/20) Objective Last 24 Hour Vital Signs Date Time Temp Pulse Resp B/P (MAP) Pulse Ox O2 Delivery O2 Flow Rate FiO2 01/07/20 16:00 98.1 58 19 137/93 (108) 96 01/07/20 12:00 98.1 60 20 136/83 (100) 97 01/07/20 09:00 Room Air 01/07/20 08:00 98.1 68 19 131/95 (107) 96 01/07/20 04:00 98.2 62 20 143/75 (97) 96 01/07/20 00:03 99.5 01/07/20 00:00 98.9 65 20 153/95 (114) 98 01/06/20 21:00 Room Air 01/06/20 20:00 99.5 68 20 163/99 (120) 97 01/06/20 18:46 98.6 Intake and Output 01/06/20 01/07/20 19:00 07:00 Intake Total 1850 ml 500 ml Output Total 1200 ml Balance 650 ml 500 ml Intake Oral 950 ml 500 ml IV Total 900 ml Output Urine Total 1200 ml # Voids 5 3 # Bowel Movements 1 Microbiology Date/Time Source Procedure Growth Status 01/04/20 17:20 Blood Blood Culture - Preliminary NO GROWTH AFTER 48 HOURS Resulted 01/04/20 17:00 Blood Blood Culture - Preliminary NO GROWTH AFTER 48 HOURS Resulted 01/05/20 19:00 Foot Right Gram Stain - Final Complete 01/05/20 19:00 Wound Culture - Final Staphylococcus Aureus - Mrsa Complete Laboratory Tests 01/06/20 16:13: POC Whole Blood Glucose 105 01/07/20 04:45: Vancomycin Level Trough 18.3H Current Medications Medications (Trade) Dose Ordered Sig/Adria Route PRN Reason Start Time Stop Time Status Last Admin Dose Admin Acetaminophen (Tylenol) 650 mg Q4H PRN ORAL MILD PAIN/FEVER >100.5 01/06/20 21:30 02/05/20 21:29 Acetaminophen/ Hydrocodone Bitart ([place] 5/325) 1 tab Q4H PRN ORAL Moderate Pain (Pain Scale 4-6) 01/06/20 21:30 01/12/20 05:29 01/07/20 12:21 Al Hydroxide/Mg Hydroxide (Mylanta) 30 ml Q4H PRN ORAL heartburn 01/06/20 21:30 02/05/20 21:29 Dextrose (Dextrose 50%) 25 ml Q30M PRN IV Hypoglycemia 01/06/20 21:45 04/03/20 21:14 Dextrose (Dextrose 50%) 50 ml Q30M PRN IV Hypoglycemia 01/06/20 21:45 04/03/20 21:14 Insulin Aspart (NovoLOG) BEFORE MEALS AND HS SUBQ 01/07/20 06:30 04/04/20 06:29 Lorazepam (Ativan 2mg/ml 1ml) 1 mg Q1H PRN IV For Seizures 01/06/20 21:30 01/11/20 21:29 Ondansetron HCl (Zofran) 4 mg Q6H PRN IVP Nausea & Vomiting 01/06/20 21:30 02/05/20 21:29 Pantoprazole (Protonix) 40 mg DAILY ORAL 01/07/20 09:00 02/04/20 08:59 01/07/20 08:21 Sodium Chloride 1,000 ml @ 100 mls/hr Q10H IV 01/06/20 21:30 02/03/20 21:59 01/07/20 06:31 Vancomycin HCl (Vanco pharmacy to dose) 1 ea DAILY PRN MISC Per rx protocol 01/07/20 09:00 02/03/20 21:14 Vancomycin/Sodium Chloride 275 ml @ 137.5 mls/ hr Q8H IVPB 01/06/20 22:00 01/11/20 05:59 01/07/20 13:58 Assessment/Plan Assessment/Plan Progress Note Assessment/Plan: Alcoholic-related seizures, postseizure pain, osteomyelitis, possible alcohol withdrawal. PLAN iv antibiotics per ID monitor for seizures impression, plan, and exam edited and reviewed in detail care discussed with RN Subjective Allergies: Coded Allergies: No Known Allergies (Unverified , 01/04/20) Subjective No new complaints Objective Vital Signs Noted Laboratory Tests Noted Height (Feet): 5 Height (Inches): 10.00 Weight (Pounds): 203 Objective WDWN NAD clear breath sounds bilaterally without rhonchi or wheeze [id number] without MRG NABS nontender no HSM no CC mild edema foot nonfocal Romulo Coleman MD Jan 07, 2020 16:06
--- NOTE | 2020-01-07 19:15 | NUR ---
NURSE NOTES: Received report from Allegra HOLT and Emilee HOLT
--- NOTE | 2020-01-07 19:22 | NUR ---
NURSE HAND-OFF: Important Events on Shift: diabetic ulcers on both feet. IV ATB Patient Status: stable Diet: low sodium Pending Orders: n/a Pending Results/Labs:n/a Pending MD notification:n/a Latest Vital Signs: Temperature 98.1 , Pulse 58 , B/P 137 /93 , Respiratory Rate 19 , O2 SAT 96 , Room Air, O2 Flow Rate . Vital Sign Comment: 137-93, HR58, T98.1,RR19, O2sat 96% Latest Cottrell Fall Score: 35 Fall Risk: Medium Risk Safety Measures: Call light Within Reach, Bed Alarm Zone 2, Side Rails Side Rails x2, Bed position Low and Locked. Fall Precautions: Yellow Socks Yellow Gown Door Sign Patient Fall Education Report given to JONATHON Ross.
--- NOTE | 2020-01-07 19:40 | NUR ---
NURSE NOTES: Received awake, alert and verbally responsive and in bed, no sob, denies any pain at this time. With bed in it's lowest position, alarmed and locked. Will continue to monitor.
[2020-01-07 20:00] VITALS: BP 166/97
[2020-01-08] VITALS: BP 148/75
[2020-01-08] MEDS: HYDROcodone/Acetamin 5/325 tab ORAL PRN ×5 (00:53→20:50)
[2020-01-08 04:00] VITALS: BP 150/99
--- NOTE | 2020-01-08 04:32 | NUR ---
Complained of pain belgica. foot, due prn meds given and noted with relief. On continued ivatb therapy of Vancomycin, with a/r noted. Able to ambulate to use bathroom in slow and steady pace. Slept @ short intervals. BS checked and within normal range. Voiding freely.
[2020-01-08] MEDS: NovoLOG Insulin Flexpen SUBQ SCH ×4 (06:30→20:52)
[2020-01-08] MEDS: Vancomycin 1.5gm/NS Premix 275 ML IVPB SCH ×3 (07:31→21:36)
--- NOTE | 2020-01-08 07:33 | NUR ---
HAND-OFF: Report given to Allegra HOLT and Emilee HOLT.
--- NOTE | 2020-01-08 07:58 | NUR ---
NURSE NOTES: Report received from JONATHON Ross. Patient seen sitting in chair Addendum: 01/08/20 at 0802 by Emilee Navarro RN Report received from JONATHON Ross. Patient seen sitting in chair, alert, awake,and oriented x4. Consuming breakfast at the time. No c/o any SOB/Distress, pain or discomfort at the moment. IV site located on LFA gauge 22 and RFA gauge 22. Both IV sites seen to be inplace, intact and patent. Both asymptomatic no signs of any swelling, redness or infection at site. Bed placed on lowest and locked position, wearing yellow socks. Call light placed within reach and will continue to monitor.
[2020-01-08 08:00] VITALS: BP 135/91
--- NOTE | 2020-01-08 10:34 | Pulmonology Progress Note ---
Subjective ROS Limited/Unobtainable: No Constitutional: Denies: fever, chills Gastrointestinal/Abdominal: Denies: nausea, vomiting, diarrhea Musculoskeletal: Reports: pain - decreased Allergies: Coded Allergies: No Known Allergies (Unverified , 01/04/20) Objective Last 24 Hour Vital Signs Date Time Temp Pulse Resp B/P (MAP) Pulse Ox O2 Delivery O2 Flow Rate FiO2 01/08/20 09:00 Room Air 01/08/20 08:00 97.9 80 18 135/91 (106) 97 01/08/20 05:45 98.1 01/08/20 04:00 99.0 64 18 150/99 (116) 100 01/08/20 00:00 98.2 65 18 148/75 (99) 100 01/07/20 21:00 Room Air 01/07/20 20:00 97.9 57 16 166/97 (120) 99 01/07/20 16:00 98.1 58 19 137/93 (108) 96 01/07/20 12:00 98.1 60 20 136/83 (100) 97 Intake and Output 01/07/20 01/08/20 19:00 07:00 Intake Total 2790 ml 1535.0 ml Output Total 900 ml Balance 1890 ml 1535.0 ml Intake Oral 1690 ml IV Total 1100 ml 1175.0 ml Other 360 ml Output Urine Total 900 ml # Voids 2 # Bowel Movements 1 Microbiology Date/Time Source Procedure Growth Status 01/05/20 19:00 Foot Right Gram Stain - Final Complete 01/05/20 19:00 Wound Culture - Final Staphylococcus Aureus - Mrsa Complete Laboratory Tests 01/08/20 05:00: Vancomycin Level Trough 18.0H Current Medications Medications (Trade) Dose Ordered Sig/Adria Route PRN Reason Start Time Stop Time Status Last Admin Dose Admin Acetaminophen (Tylenol) 650 mg Q4H PRN ORAL MILD PAIN/FEVER >100.5 01/06/20 21:30 02/05/20 21:29 Acetaminophen/ Hydrocodone Bitart ([place] 5/325) 1 tab Q4H PRN ORAL Moderate Pain (Pain Scale 4-6) 01/06/20 21:30 01/12/20 05:29 01/08/20 09:20 Al Hydroxide/Mg Hydroxide (Mylanta) 30 ml Q4H PRN ORAL heartburn 01/06/20 21:30 9/6/20 21:29 Dextrose (Dextrose 50%) 25 ml Q30M PRN IV Hypoglycemia 01/06/20 21:45 04/03/20 21:14 Dextrose (Dextrose 50%) 50 ml Q30M PRN IV Hypoglycemia 01/06/20 21:45 04/03/20 21:14 Insulin Aspart (NovoLOG) BEFORE MEALS AND HS SUBQ 01/07/20 06:30 04/04/20 06:29 01/07/20 16:33 Lorazepam (Ativan 2mg/ml 1ml) 1 mg Q1H PRN IV For Seizures 01/06/20 21:30 01/11/20 21:29 Ondansetron HCl (Zofran) 4 mg Q6H PRN IVP Nausea & Vomiting 01/06/20 21:30 02/05/20 21:29 Pantoprazole (Protonix) 40 mg DAILY ORAL 01/07/20 09:00 02/04/20 08:59 01/08/20 08:01 Sodium Chloride 1,000 ml @ 100 mls/hr Q10H IV 01/06/20 21:30 02/03/20 21:59 01/08/20 05:07 Vancomycin HCl (Vanco pharmacy to dose) 1 ea DAILY PRN MISC Per rx protocol 01/07/20 09:00 02/03/20 21:14 Vancomycin/Sodium Chloride 275 ml @ 137.5 mls/ hr Q8H IVPB 01/06/20 22:00 01/11/20 05:59 01/08/20 07:31 Assessment/Plan Assessment/Plan Progress Note Assessment/Plan: Alcoholic-related seizures, postseizure pain, osteomyelitis, possible alcohol withdrawal. PLAN iv antibiotics per ID monitor for seizures impression, plan, and exam edited and reviewed in detail care discussed with RN Subjective Allergies: Coded Allergies: No Known Allergies (Unverified , 01/04/20) Subjective No new complaints Objective Vital Signs Noted Laboratory Tests Noted Height (Feet): 5 Height (Inches): 10.00 Weight (Pounds): 203 Objective WDWN NAD clear breath sounds bilaterally without rhonchi or wheeze [id number] without MRG NABS nontender no HSM no CC mild edema foot nonfocal Romulo Coleman MD Jan 08, 2020 10:34
[2020-01-08 12:00] VITALS: BP 141/93
--- NOTE | 2020-01-08 12:57 | Surgery Progress Note ---
Surgery Progress Note Subjective Symptoms: improved, tolerating diet, passing flatus, pain decreased Objective Last 24 Hour Vital Signs Date Time Temp Pulse Resp B/P (MAP) Pulse Ox O2 Delivery O2 Flow Rate FiO2 01/08/20 12:00 97.3 73 17 141/93 (109) 99 01/08/20 09:00 Room Air 01/08/20 08:00 97.9 80 18 135/91 (106) 97 01/08/20 05:45 98.1 01/08/20 04:00 99.0 64 18 150/99 (116) 100 01/08/20 00:00 98.2 65 18 148/75 (99) 100 01/07/20 21:00 Room Air 01/07/20 20:00 97.9 57 16 166/97 (120) 99 01/07/20 16:00 98.1 58 19 137/93 (108) 96 I&O Intake and Output 01/07/20 01/08/20 19:00 07:00 Intake Total 2790 ml 1535.0 ml Output Total 900 ml Balance 1890 ml 1535.0 ml Intake Oral 1690 ml IV Total 1100 ml 1175.0 ml Other 360 ml Output Urine Total 900 ml # Voids 2 # Bowel Movements 1 Dressing: dry Wound: clean Cardiovascular: RSR Respiratory: clear Abdomen: soft, non-tender, present bowel sounds Extremities: no edema, no tenderness, no cyanosis, other Laboratory Tests Test 01/07/20 16:07 01/08/20 05:00 01/08/20 06:11 01/08/20 11:15 POC Whole Blood Glucose 154 MG/DL (74-106) H 109 MG/DL (74-106) H 100 MG/DL (74-106) Vancomycin Level Trough 18.0 ug/mL (5.0-12.0) H Plan Problems: (1) Cellulitis of lower extremity Assessment & Plan: left foot with cellulitis. pulses okay. decreased sensation. ulcer on plantar aspect. no abscess. no drainage Pt presented on admission with multiple ulcerations to both feet.Ulcer Plantar L 1st metatarsal has punched out appearance, is michael with dry necrotic borders( L)1cm x (W)0.9cm. No odor or exudate noted. No erythema or fluctuance periwound. Pt stated wound previously had thick callused cap which pt stated he attempted to shave off with Callus removing device. Dry eschar noted to tips of L 2nd 3rd and 4th metatarsals. Dry eschar with slit noted to plantar L Hallux area. NO odor exudate or erythema noted. R 3rd metatarsal with joint deformity and full thickness ulcer at head of metatarsal(L)1.4cm x (W)1.6cm. Base of wound is necrotic centrally with surrounding michael base with scattered necrosis and an area of slough along plantar aspect of metatarsal. Borders are irregular and michael, extending along web space and along plantar aspect to base of metatarsal. No odor or exudate noted during wound assessment but dry exudate noted periwound. Also at base of R3rd metatarsal smaller wound that is michael and moist noted.(L)0.4cm x (W) 0.5cm. Pt stated having wounds for unspecified amt of time. Dry eschar noted to lateral R 1st metatarsal. No erythema ,exudate, or fluctuance periwound. A second,smaller ulcer noted to plantar base of R 1st metatarsal that is moist and michael . No erythema, odor,or fluctuance periwound. Dry eschar noted to plantar R hallux area. Pt cited multiple traumas to both feet over an unspecified period and admits to being lax in care of feet and inspecting his feet despite being aware of risks with Having diabetes and Neuropathy. Pt educated of risks vs benefits of good foot care, wearing proper footwear and inspecting feet daily.Pt also advised against removing calluses with sharp devices. Tx.Plan:Apply Betadine to wounds both feet. Cover with ABD Pads and wrap each foot with Kerlix Daily and prn.3 diet as tolerated strict DM control d/c planning outpatient neuro follow up for further testing (2) Alcohol abuse (3) Seizure Antonio Canela Jan 08, 2020 12:57
--- NOTE | 2020-01-08 13:32 | Infectious Diseases Prog Note ---
Assessment/Plan Assessment/Plan ASSESSMENT: 1. Third right osteomyelitis & cellulitis 2. Diabetes with foot ulcer, MRSA in culture 3. Seizures. 4. Diabetic neuropathy PLAN: 1. Continue IV vancomycin 37 more days 2. CBC, BMP, Vancomycin level q weekly 2. PICC line placement Subjective ROS Limited/Unobtainable: Yes Constitutional: Denies: fever Allergies: Coded Allergies: No Known Allergies (Unverified , 01/04/20) Objective Last 24 Hour Vital Signs Date Time Temp Pulse Resp B/P (MAP) Pulse Ox O2 Delivery O2 Flow Rate FiO2 01/08/20 12:00 97.3 73 17 141/93 (109) 99 01/08/20 09:00 Room Air 01/08/20 08:00 97.9 80 18 135/91 (106) 97 01/08/20 05:45 98.1 01/08/20 04:00 99.0 64 18 150/99 (116) 100 01/08/20 00:00 98.2 65 18 148/75 (99) 100 01/07/20 21:00 Room Air 01/07/20 20:00 97.9 57 16 166/97 (120) 99 01/07/20 16:00 98.1 58 19 137/93 (108) 96 Height (Feet): 5 Height (Inches): 10.00 Weight (Pounds): 200 General Appearance: no acute distress HEENT: mucous membranes moist Respiratory/Chest: lungs clear Cardiovascular: normal rate Abdomen: soft, non tender Extremities: no edema Neurologic/Psychiatric: other - sleeping Microbiology Date/Time Source Procedure Growth Status 01/05/20 19:00 Foot Right Gram Stain - Final Complete 01/05/20 19:00 Wound Culture - Final Staphylococcus Aureus - Mrsa Complete Laboratory Tests Test 01/07/20 16:07 01/08/20 05:00 01/08/20 06:11 01/08/20 11:15 POC Whole Blood Glucose 154 MG/DL (74-106) H 109 MG/DL (74-106) H 100 MG/DL (74-106) Vancomycin Level Trough 18.0 ug/mL (5.0-12.0) H Current Medications Medications (Trade) Dose Ordered Sig/Adria Route PRN Reason Start Time Stop Time Status Last Admin Dose Admin Acetaminophen (Tylenol) 650 mg Q4H PRN ORAL MILD PAIN/FEVER >100.5 01/06/20 21:30 02/05/20 21:29 Acetaminophen/ Hydrocodone Bitart ([place] 5/325) 1 tab Q4H PRN ORAL Moderate Pain (Pain Scale 4-6) 01/06/20 21:30 01/12/20 05:29 01/08/20 09:20 Al Hydroxide/Mg Hydroxide (Mylanta) 30 ml Q4H PRN ORAL heartburn 01/06/20 21:30 02/05/20 21:29 Dextrose (Dextrose 50%) 25 ml Q30M PRN IV Hypoglycemia 01/06/20 21:45 04/03/20 21:14 Dextrose (Dextrose 50%) 50 ml Q30M PRN IV Hypoglycemia 01/06/20 21:45 04/03/20 21:14 Insulin Aspart (NovoLOG) BEFORE MEALS AND HS SUBQ 01/07/20 06:30 04/04/20 06:29 01/07/20 16:33 Lorazepam (Ativan 2mg/ml 1ml) 1 mg Q1H PRN IV For Seizures 01/06/20 21:30 01/11/20 21:29 Ondansetron HCl (Zofran) 4 mg Q6H PRN IVP Nausea & Vomiting 01/06/20 21:30 02/05/20 21:29 Pantoprazole (Protonix) 40 mg DAILY ORAL 01/07/20 09:00 02/04/20 08:59 01/08/20 08:01 Sodium Chloride 1,000 ml @ 100 mls/hr Q10H IV 01/06/20 21:30 02/03/20 21:59 01/08/20 05:07 Vancomycin HCl (Vanco pharmacy to dose) 1 ea DAILY PRN MISC Per rx protocol 01/07/20 09:00 02/03/20 21:14 Vancomycin/Sodium Chloride 275 ml @ 137.5 mls/ hr Q8H IVPB 01/06/20 22:00 01/11/20 05:59 01/08/20 07:31 Sae Duarte MD Jan 08, 2020 13:32
--- NOTE | 2020-01-08 13:44 | NUR ---
CASE MANAGEMENT:REVIEW 01/07/20 SI: OSTEOMYELITIS FOOT . SEIZURE. ALCOHOL ABUSE . LOWER EXTREMITY CELLULITIS. 98.1 68 19 131/95 96% ON RA VANCO TR 18.3 IS: IV VANCOMYCIN TID IV NS @100/HR PROTONIX PO QD SS INSULIN AC+HS NORCO PO Q4HRS PRN \: 4E MED SURG UNIT CASE MANAGEMENT:REVIEW 01/08/20 SI: OSTEOMYELITIS FOOT . SEIZURE. ALCOHOL ABUSE . LOWER EXTREMITY CELLULITIS. 97.3 73 17 141/93% ON RA VANCO TR 18.0 IS: IV VANCOMYCIN Q8HRS IVF@100/HR PROTONIX PO QD SS INSULIN AC+HS NORCO PO Q4HRS PRN \: 4E MED SURG UNIT DCP: HOME WHEN STABLE PLAN: PICC LINE PLACEMENT
[2020-01-08] MEDS ORDERED: Lidocaine 1% Plain 30 ml INJ PRN (13:45)
[2020-01-08] MEDS ORDERED: Heparin1,000 units/500ml Premix(Conc:2 units/ml) IV PRN (13:45)
[2020-01-08 16:00] VITALS: BP 160/94
--- NOTE | 2020-01-08 19:16 | NUR ---
NURSE HAND-OFF: Important Events on Shift: Consent done for PICC line insertion for 01/09/2020 Patient Status: stable Diet: low sodium Pending Orders: none Pending Results/Labs:none Pending MD notification: none Latest Vital Signs: Temperature 97.3 , Pulse 71 , B/P 160 /94 , Respiratory Rate 19 , O2 SAT 98 , Room Air, O2 Flow Rate . Vital Sign Comment:stable Latest Cottrell Fall Score: 35 Fall Risk: Medium Risk Safety Measures: Call light Within Reach, Bed Alarm Zone 2, Side Rails Side Rails x2, Bed position Low and Locked. Fall Precautions: Yellow Socks Yellow Gown Door Sign Patient Fall Education Report given to JONATHON Bray.
--- NOTE | 2020-01-08 19:52 | NUR ---
NURSE NOTES: Report received from JONATHON Garcia. PPt a/o x4. Breathing regular and unlabored. No Distress noted, IV site located on LFA gauge 22 and RFA gauge 22 running fluids as ordered. Both intact and patent. Bed placed on lowest and locked position. Call light placed within reach and will continue to monitor.
[2020-01-08 20:00] VITALS: BP 149/100
[2020-01-08] MEDS: Dyna-Hex 2% Top Sol 2oz TOPIC SCH (20:00)
--- NOTE | 2020-01-08 21:00 | CDS Physician Query ---
Clarification is required for compliance, coding accuracy, and to reflect severity of illness for this patient Dear Dr. Jaya Isidro M.D. Date: 01/07/20 CDI/CDS Name: Eric Estes Clinical Documentation Statement: 34-year-old male brought in for suspected seizure. 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 IMPRESSION: Alcoholic-related seizures, postseizure pain, possible osteomyelitis, possible alcohol withdrawal. [ H&P Jaya Isidro M.D. 01/04] Clinical Finding Show: BMI: 28.7kg/m2 LAB (01/03) : Chem: Albumin 3.3 [3.4-5.0], Calcium 8.8 [ 8.5-10.1] Medication: Dextrose 50ml IV Please select the most appropriate option: [] Protein/Calorie Malnutrition [] Mild [] Moderate [] Severe [] Other [] Unable to determine [] Not Applicable Present on Admission: [] Yes [] No [] Clinically Undetermined Physician signature Date Please also document in your Progress Notes and/or Discharge Summary and indicate if the condition was present on admission. MTDD
--- NOTE | 2020-01-08 21:08 | CDS Physician Query ---
Clarification is required for compliance, coding accuracy, and to reflect severity of illness for this patient. Dear Dr. Jaya Isidro M.D. Date: 01/07/20 CDI/CDS Name: Eric Estes Clinical Documentation Statement: 34-year-old male brought in for suspected seizure. IMPRESSION: Alcoholic-related seizures, postseizure pain, possible osteomyelitis, possible alcohol withdrawal. [ H&P Jaya Isidro M.D. 01/04] The findings below have been reported on this patient's medical record: Sodium level (01/03) : 133 MMOL/L [136-145] Chloride level (01/03): 97 MMOL/L [98-107] Medication: Sodium chloride IV (01/03-01/05) Please Clarify the diagnosis associated with this finding: Diagnosis: [ ] Hyponatremia [ ] Hypochloremia [ ] Other [ ] Finding is not significant Present on Admission: [] Yes [] No [] Clinically Undetermined Physician signature Date Please also document in your Progress Notes and/or Discharge Summary and indicate if the condition was present on admission. MTDD
[2020-01-09] VITALS: BP 140/97
[2020-01-09] MEDS: HYDROcodone/Acetamin 5/325 tab ORAL PRN ×4 (01:24→15:04)
[2020-01-09 04:00] VITALS: BP 148/100
[2020-01-09] MEDS: Vancomycin 1.5gm/NS Premix 275 ML IVPB SCH ×3 (05:35→21:12)
[2020-01-09] MEDS: NovoLOG Insulin Flexpen SUBQ SCH ×4 (06:30→20:06)
--- NOTE | 2020-01-09 07:46 | NUR ---
NURSE HAND-OFF: Important Events on Shift:PICC placement today. Consent signed Patient Status: Diet: Pending Orders: Vanco trough 01/10/20 Pending Results/Labs: Pending MD notification: Latest Vital Signs: Temperature 97.9 , Pulse 69 , B/P 148 /100 , Respiratory Rate 18 , O2 SAT 99 , Room Air, O2 Flow Rate . Vital Sign Comment: Latest Cottrell Fall Score: 35 Fall Risk: Medium Risk Safety Measures: Call light Within Reach, Bed Alarm Zone 2, Side Rails Side Rails x2, Bed position Low and Locked. Fall Precautions: Yellow Socks Yellow Gown Door Sign Patient Fall Education Report given to JONATHON Ramos].
--- NOTE | 2020-01-09 07:56 | NUR ---
NURSE NOTES: made initial rounds, pt is eating breakfast. exchanged greetings with pt. denies any pain and discomfort at this time. side-rails padded for seizure precaution. no acute distress noted, will follow plan of care for the day. call light is within reach.
[2020-01-09 08:00] VITALS: BP 145/98
--- NOTE | 2020-01-09 09:09 | General Progress Note ---
Assessment/Plan Assessment/Plan: Alcoholic-related seizures, postseizure pain, osteomyelitis, possible alcohol withdrawal. PLAN iv Vanco x 36 ID to assist monitor for seizures cm to assist impression, plan, and exam edited and reviewed in detail care discussed with RN Subjective Allergies: Coded Allergies: No Known Allergies (Unverified , 01/04/20) Subjective MRI + osteo Objective Last 24 Hour Vital Signs Date Time Temp Pulse Resp B/P (MAP) Pulse Ox O2 Delivery O2 Flow Rate FiO2 01/09/20 04:00 97.9 69 18 148/100 (116) 99 01/09/20 00:00 98.4 67 18 140/97 (111) 100 01/08/20 21:00 Room Air 01/08/20 20:00 97.3 85 20 149/100 (116) 99 01/08/20 16:00 97.7 71 19 160/94 (116) 98 01/08/20 12:00 97.3 73 17 141/93 (109) 99 Intake and Output 01/08/20 01/09/20 19:00 07:00 Intake Total 1750.0 ml 1750 ml Balance 1750.0 ml 1750 ml Intake Oral 600 ml 850 ml IV Total 1150.0 ml 900 ml # Voids 5 Laboratory Tests 01/08/20 11:15: POC Whole Blood Glucose 100 Height (Feet): 5 Height (Inches): 10.00 Weight (Pounds): 200 Objective WDWN NAD clear breath sounds bilaterally without rhonchi or wheeze [id number] without MRG NABS nontender no HSM no CC mild edema foot nonfocal Jaya sIidro MD Jan 09, 2020 09:09
--- NOTE | 2020-01-09 11:47 | Infectious Diseases Prog Note ---
"Assessment/Plan Assessment/Plan antibiotics : vancomycin iv A 1. right 3rd toe cellulitis | osteomyelitis with MRSA 2. seizures 3. diabetes mellitus P 1. continue iv vancomycin 36 more days 2. cbc, bmp, vancomycin level q weekly 3. will follow up cultures Subjective Constitutional: Denies: fever, chills Respiratory: Denies: shortness of breath, dry cough Gastrointestinal/Abdominal: Denies: nausea, vomiting, diarrhea Musculoskeletal: Reports: pain - right foot Allergies: Coded Allergies: No Known Allergies (Unverified , 01/04/20) Objective Last 24 Hour Vital Signs Date Time Temp Pulse Resp B/P (MAP) Pulse Ox O2 Delivery O2 Flow Rate FiO2 01/09/20 09:00 Room Air 01/09/20 08:00 97.9 64 18 145/98 (114) 100 01/09/20 04:00 97.9 69 18 148/100 (116) 99 01/09/20 00:00 98.4 67 18 140/97 (111) 100 01/08/20 21:00 Room Air 01/08/20 20:00 97.3 85 20 149/100 (116) 99 01/08/20 16:00 97.7 71 19 160/94 (116) 98 01/08/20 12:00 97.3 73 17 141/93 (109) 99 Height (Feet): 5 Height (Inches): 10.00 Weight (Pounds): 200 Respiratory/Chest: lungs clear Cardiovascular: normal rate, regular rhythm, no gallop/murmur Abdomen: soft, non tender Extremities: no edema, other - right foot in dressings Current Medications Medications (Trade) Dose Ordered Sig/Adria Route PRN Reason Start Time Stop Time Status Last Admin Dose Admin Acetaminophen (Tylenol) 650 mg Q4H PRN ORAL MILD PAIN/FEVER >100.5 01/06/20 21:30 02/05/20 21:29 Acetaminophen/ Hydrocodone Bitart ([place] 5/325) 1 tab Q4H PRN ORAL Moderate Pain (Pain Scale 4-6) 01/06/20 21:30 01/12/20 05:29 01/09/20 09:37 Al Hydroxide/Mg Hydroxide (Mylanta) 30 ml Q4H PRN ORAL heartburn 01/06/20 21:30 02/05/20 21:29 Chlorhexidine Gluconate (Claudine-Hex 2%) 1 applic DAILY@2000 TOPIC 01/08/20 20:00 04/07/20 19:59 Dextrose (Dextrose 50%) 25 ml Q30M PRN IV Hypoglycemia 01/06/20 21:45 04/03/20 21:14 Dextrose (Dextrose 50%) 50 ml Q30M PRN IV Hypoglycemia 01/06/20 21:45 04/03/20 21:14 Heparin Sodium/ Sodium Chloride (Heparin 1000 units/500ml Premix) 1,000 unit ONCE PRN IV PICC LINE 01/08/20 13:45 01/10/20 13:44 Insulin Aspart (NovoLOG) BEFORE MEALS AND HS SUBQ 01/07/20 06:30 04/04/20 06:29 01/08/20 20:52 Lidocaine HCl (Xylocaine 1% 30ml) 30 ml ONCE PRN INJ PICC LINE 01/08/20 13:45 01/10/20 13:44 Lorazepam (Ativan 2mg/ml 1ml) 1 mg Q1H PRN IV For Seizures 01/06/20 21:30 01/11/20 21:29 Ondansetron HCl (Zofran) 4 mg Q6H PRN IVP Nausea & Vomiting 01/06/20 21:30 02/05/20 21:29 Pantoprazole (Protonix) 40 mg DAILY ORAL 01/07/20 09:00 02/04/20 08:59 01/09/20 09:37 Sodium Chloride 1,000 ml @ 100 mls/hr Q10H IV 01/06/20 21:30 02/03/20 21:59 01/09/20 01:24 Vancomycin HCl (Vanco pharmacy to dose) 1 ea DAILY PRN MISC Per rx protocol 01/07/20 09:00 02/03/20 21:14 Vancomycin/Sodium Chloride 275 ml @ 137.5 mls/ hr Q8H IVPB 01/06/20 22:00 01/11/20 05:59 01/09/20 05:35 Olvin Carbajal MD Jan 09, 2020 11:47"
[2020-01-09 12:00] VITALS: BP 138/94
--- NOTE | 2020-01-09 12:01 | NUR ---
DISCHARGE PLANNING CALL MADE TO DR BARAJAS. AWAITING CALL BACK. Addendum: 01/09/20 at 1417 by DERECK MALDONADO LVN LVN F/U CALL MADE TO DR BARAJAS. MESSAGE LEFT REQUESTING CALL BACK.
--- NOTE | 2020-01-09 12:24 | NUR ---
RD ASSESSMENT & RECOMMENDATIONS SEE CARE ACTIVITY FOR COMPLETE ASSESSMENT DAILY ESTIMATED NEEDS: Needs based on Wound, om, DM 79kg abw 25-30 kcals/kg total kcals 1.25-2 g protein/kg 99-119 g total protein 25-30 mL/kg total fluid mLs NUTRITION DIAGNOSIS: Increased protein needs r/t Osteomyelitis, wound care as evidenced by osteomyelitis of the third middle and distal phalanges with extensive cellulitis of the third toe. (CURRENT DIET: Low NA) PO DIET RECOMMENDATIONS--->>> CCHO LOW + LOW NA DIET / ADDED PROTEINS ADDITIONAL RECOMMENDATIONS: 1) Obtain standing weight if able; or calibrated bed scale wt 2) Check HgA1C for eval 3) Updated chem panel 4) JUAQUIN BID + Vit C 250mg BID + MVI w/ min qdaily for wound care
--- NOTE | 2020-01-09 14:45 | NUR ---
RADIOLOGY NOTE: LEFT UPPER EXTREMITY PICC LINE PLACEMENT AT [address] AMADOR. FA
[2020-01-09 16:00] VITALS: BP 132/91
--- NOTE | 2020-01-09 17:00 | Surgery Progress Note ---
Surgery Progress Note Subjective Symptoms: improved, tolerating diet, voiding well, passing flatus Objective Last 24 Hour Vital Signs Date Time Temp Pulse Resp B/P (MAP) Pulse Ox O2 Delivery O2 Flow Rate FiO2 01/09/20 12:00 98.1 62 19 138/94 (109) 100 01/09/20 09:00 Room Air 01/09/20 08:00 97.9 64 18 145/98 (114) 100 01/09/20 04:00 97.9 69 18 148/100 (116) 99 01/09/20 00:00 98.4 67 18 140/97 (111) 100 01/08/20 21:00 Room Air 01/08/20 20:00 97.3 85 20 149/100 (116) 99 I&O Intake and Output 01/08/20 01/09/20 19:00 07:00 Intake Total 1750.0 ml 1750 ml Balance 1750.0 ml 1750 ml Intake Oral 600 ml 850 ml IV Total 1150.0 ml 900 ml # Voids 5 Dressing: dry Wound: clean Cardiovascular: RSR Respiratory: clear Abdomen: soft, non-tender, present bowel sounds Extremities: no edema, no tenderness, no cyanosis Plan Problems: (1) Cellulitis of lower extremity Assessment & Plan: left foot with cellulitis. pulses okay. decreased sensation. ulcer on plantar aspect. no abscess. no drainage Pt presented on admission with multiple ulcerations to both feet.Ulcer Plantar L 1st metatarsal has punched out appearance, is michael with dry necrotic borders( L)1cm x (W)0.9cm. No odor or exudate noted. No erythema or fluctuance periwound. Pt stated wound previously had thick callused cap which pt stated he attempted to shave off with Callus removing device. Dry eschar noted to tips of L 2nd 3rd and 4th metatarsals. Dry eschar with slit noted to plantar L Hallux area. NO odor exudate or erythema noted. R 3rd metatarsal with joint deformity and full thickness ulcer at head of metatarsal(L)1.4cm x (W)1.6cm. Base of wound is necrotic centrally with surrounding michael base with scattered necrosis and an area of slough along plantar aspect of metatarsal. Borders are irregular and michael, extending along web space and along plantar aspect to base of metatarsal. No odor or exudate noted during wound assessment but dry exudate noted periwound. Also at base of R3rd metatarsal smaller wound that is michael and moist noted.(L)0.4cm x (W) 0.5cm. Pt stated having wounds for unspecified amt of time. Dry eschar noted to lateral R 1st metatarsal. No erythema ,exudate, or fluctuance periwound. A second,smaller ulcer noted to plantar base of R 1st metatarsal that is moist and michael . No erythema, odor,or fluctuance periwound. Dry eschar noted to plantar R hallux area. Pt cited multiple traumas to both feet over an unspecified period and admits to being lax in care of feet and inspecting his feet despite being aware of risks with Having diabetes and Neuropathy. Pt educated of risks vs benefits of good foot care, wearing proper footwear and inspecting feet daily.Pt also advised against removing calluses with sharp devices. Tx.Plan:Apply Betadine to wounds both feet. Cover with ABD Pads and wrap each foot with Kerlix Daily and prn.3 diet as tolerated strict DM control d/c planning outpatient neuro follow up for further testing (2) Alcohol abuse (3) Seizure Antonio Canela Jan 09, 2020 17:00
--- NOTE | 2020-01-09 17:26 | NUR ---
CASE MANAGEMENT:REVIEW SI;RLE OSTEOMYELITIS. LLE CELLULITIS. DM, 98.1 69 19 148/100 99% ON RA IS;HEPARIN SUBQ PROTONIX PO VANCOMYCIN IV Q8 IVF NS @ 100 ML/HR NORCO PO Q4 PRN MED SURG STATUS DCP;FROM HOME
--- NOTE | 2020-01-09 19:13 | NUR ---
NURSE HAND-OFF: Important Events on Shift:NEW PICC LINE ON FANG Patient Status: ASLEEP, NO ACUTE DISTRESS Diet: LOW NA DIET Pending Orders: AWAITING PICC LINE REPORT Pending Results/Labs:PICC LINE REPORT Pending MD notification: Latest Vital Signs: Temperature 98.0 , Pulse 66 , B/P 132 /91 , Respiratory Rate 19 , O2 SAT 100 , Room Air, O2 Flow Rate . Vital Sign Comment: Latest Cottrell Fall Score: 35 Fall Risk: Medium Risk Safety Measures: Call light Within Reach, Bed Alarm Zone 2, Side Rails Side Rails x2, Bed position Low and Locked. Fall Precautions: Yellow Socks Yellow Gown Door Sign Patient Fall Education Report given to Osman.
--- NOTE | 2020-01-09 19:30 | NUR ---
NURSE NOTES: Patient asleep in bed, calm, no SOB noted. Dressing dry and intact. PICC on the left upper arm double lumen cath. Waiting for ok to use order. IV access on bilateral arms, one connected to IVF as ordered. Instructed to use call light for help. Bed in lowest and lock engaged. Will continue to plan of care.
[2020-01-09 20:00] VITALS: BP 138/93
[2020-01-09] MEDS: Dyna-Hex 2% Top Sol 2oz TOPIC SCH (20:05)
[2020-01-09] MEDS ORDERED: Morphine Sulfate 2mg/ml Inj(IV/IM USE ONLY) IVP PRN (20:15)
[2020-01-09] MEDS ORDERED: HYDROcodone/Acetamin 5/325 tab ORAL PRN (20:30)
[2020-01-09] MEDS: Morphine Sulfate 4mg/ml Inj (IV USE ONLY) IVP PRN ×2 (20:30→23:29)
--- NOTE | 2020-01-09 20:45 | NUR ---
NURSE NOTES: Patient complained of severe pain that cannot be helped by oral pain med and wanted stronger IV pain med. Dr. Isidro made aware and obtained order for Morphine IV, given as ordered. Will continue monitor patient.
[2020-01-10] VITALS: BP 148/99
--- NOTE | 2020-01-10 02:16 | NUR ---
NURSE NOTES: Patient wanted to be dc from the IVF temporarily, risks and benefits explained.
[2020-01-10 04:00] VITALS: BP 142/98
[2020-01-10] MEDS: Morphine Sulfate 4mg/ml Inj (IV USE ONLY) IVP PRN ×3 (04:40→09:47)
--- NOTE | 2020-01-10 05:23 | NUR ---
NURSE NOTES: Reminded patient about the IVF but he refused it again this time.
[2020-01-10] MEDS: NovoLOG Insulin Flexpen SUBQ SCH ×2 (06:04→11:30)
[2020-01-10] MEDS: Vancomycin 1.5gm/NS Premix 275 ML IVPB SCH (06:39)
--- NOTE | 2020-01-10 07:04 | NUR ---
Important Events on Shift:IV pain med, Vanco Trough 01/09 5am-17.0, dose continued per pharm Patient Status: stable Diet: Low Sodium Pending Orders: AWAITING PICC LINE REPORT Pending Results/Labs: PICC LINE REPORT Pending MD notification: Latest Vital Signs: Temperature 98.2 , Pulse 77 , B/P 142/98 , Respiratory Rate 20 , O2 SAT 95 , Room Air, O2 Flow Rate . Vital Sign Comment: Watch for increased BP Latest Cottrell Fall Score: 35 Fall Risk: Medium Risk Safety Measures: Call light Within Reach, Bed Alarm Zone , Side Rails Side Rails x2, Bed position Low and Locked. Fall Precautions: Yellow Socks Yellow Gown Door Sign Patient Fall Education Report given to JONATHON Aguilar.
--- NOTE | 2020-01-10 07:15 | NUR ---
NURSE NOTES: Received report from JONATHON Forrest. Patient is AAO x 4, ambulatory with steady gait, independent with ADLs. on RA in no apparent respiratory distress. LBM 01/08/20. Last BS 100, no coverage. B feet cellulitis with dressings intact and slightly soiled. PICC line double lumen to JOSEFINA with IVF ordered for NS at 100 ml/hr. Pt has good appetite. Reports not having good sleep last night. Pt is now sleeping again. Bed in lowest position. Call light within reach. Will continue POC.
--- NOTE | 2020-01-10 07:32 | General Progress Note ---
Assessment/Plan Assessment/Plan: Alcoholic-related seizures, postseizure pain, osteomyelitis, possible alcohol withdrawal. PLAN iv Vanco x 35 ID to assist monitor for seizures cm to assist impression, plan, and exam edited and reviewed in detail care discussed with RN Subjective Allergies: Coded Allergies: No Known Allergies (Unverified , 01/04/20) Subjective MRI + osteo Objective Last 24 Hour Vital Signs Date Time Temp Pulse Resp B/P (MAP) Pulse Ox O2 Delivery O2 Flow Rate FiO2 01/10/20 04:00 98.2 77 20 142/98 (113) 95 01/10/20 00:00 97.7 72 20 148/99 (115) 98 01/09/20 21:00 Room Air 01/09/20 20:00 97.7 68 18 138/93 (108) 98 01/09/20 16:00 98.0 66 19 132/91 (105) 100 01/09/20 12:00 98.1 62 19 138/94 (109) 100 01/09/20 09:00 Room Air 01/09/20 08:00 97.9 64 18 145/98 (114) 100 Intake and Output 01/09/20 01/10/20 19:00 07:00 Intake Total 750 ml 675.0 ml Balance 750 ml 675.0 ml Intake Oral 650 ml IV Total 100 ml 675.0 ml # Voids 1 2 # Bowel Movements 1 Laboratory Tests 01/09/20 11:49: POC Whole Blood Glucose [Pending] 01/10/20 05:05: Vancomycin Level Trough 17.0H Height (Feet): 5 Height (Inches): 10.00 Weight (Pounds): 194 Objective WDWN NAD clear breath sounds bilaterally without rhonchi or wheeze [id number] without MRG NABS nontender no HSM no CC mild edema foot nonfocal Jaya Isidro MD Jan 10, 2020 07:32
[2020-01-10 08:00] VITALS: BP 146/98
--- NOTE | 2020-01-10 08:53 | Diagnostic Imaging Report ---
Indications: Needs long-term IV access Technique: Ultrasound confirms patent compressible left basilic vein. Total sterile technique, including sterile probe cover and sterile gel, hat, mask, sterile gown, large sterile drape, and preparation with 2% chlorhexidine utilized. Local anesthesia with 1% lidocaine. Under real-time ultrasound guidance, puncture left basilic vein using 21-gauge needle, documented and archived, passage 0.018 guidewire under direct fluoroscopy, which was used to determine appropriate catheter length, exchange for 4 And[place]ran peel-away sheath. 4 And[place] Bard dual-lumen power PICC cut to 45 cm. It was inserted through the peel-away sheath. Peel-away sheath and guidewire removed. Catheter fixed to the skin. Both catheter ports aspirated and flushed. Patient tolerated procedure well, without immediate complication. Digital radiograph documents satisfactory catheter tip position, at the high right atrium. Total fluoroscopy time 27.1 seconds. Total dose area product 0.60152 mGym2 Total number of images: 1 Impression: Successful placement of left PICC under sonographic and fluoroscopic guidance, as described above. PICC suitable for use
--- NOTE | 2020-01-10 09:44 | NUR ---
NURSE NOTES: Morphine PRN dose pulled from [facility] around 829 but pending Ok to use order for PICC. S/w Faustina of Pharmacy and made her aware. Per Faustina, go ahead and give medication as ordered. Addendum: 01/10/20 at 0945 by Jeff Watts RN Marquita Sebastian RN also made aware.
--- NOTE | 2020-01-10 11:05 | Infectious Diseases Prog Note ---
"Assessment/Plan Assessment/Plan antibiotics : vancomycin iv A 1. right 3rd toe cellulitis | osteomyelitis with MRSA 2. seizures 3. diabetes mellitus P 1. d/c iv vancomycin 2. start and continue po doxycyline 35 more days due to limited options 3. will follow up cultures Subjective Constitutional: Denies: fever, chills Respiratory: Denies: shortness of breath, dry cough Gastrointestinal/Abdominal: Denies: nausea, vomiting, diarrhea Musculoskeletal: Reports: pain - decreased Allergies: Coded Allergies: No Known Allergies (Unverified , 01/04/20) Objective Last 24 Hour Vital Signs Date Time Temp Pulse Resp B/P (MAP) Pulse Ox O2 Delivery O2 Flow Rate FiO2 01/10/20 09:00 Room Air 01/10/20 08:00 97.9 81 20 146/98 (114) 95 01/10/20 04:00 98.2 77 20 142/98 (113) 95 01/10/20 00:00 97.7 72 20 148/99 (115) 98 01/09/20 21:00 Room Air 01/09/20 20:00 97.7 68 18 138/93 (108) 98 01/09/20 16:00 98.0 66 19 132/91 (105) 100 01/09/20 12:00 98.1 62 19 138/94 (109) 100 Height (Feet): 5 Height (Inches): 10.00 Weight (Pounds): 194 Respiratory/Chest: lungs clear Cardiovascular: normal rate, regular rhythm, no gallop/murmur Abdomen: soft, non tender Extremities: no edema, other - right 3rd toe bleeding Laboratory Tests Test 01/09/20 11:49 01/09/20 16:54 01/09/20 20:01 01/10/20 05:05 POC Whole Blood Glucose Pending 107 MG/DL (74-106) H 103 MG/DL (74-106) Vancomycin Level Trough 17.0 ug/mL (5.0-12.0) H Current Medications Medications (Trade) Dose Ordered Sig/Adria Route PRN Reason Start Time Stop Time Status Last Admin Dose Admin Acetaminophen (Tylenol) 650 mg Q4H PRN ORAL FEVER >100.5 01/09/20 20:30 02/05/20 21:29 Acetaminophen/ Hydrocodone Bitart ([place] 5/325) 1 tab Q4H PRN ORAL Mild Pain (Pain Scale 1-3) 01/09/20 20:30 01/12/20 05:29 Al Hydroxide/Mg Hydroxide (Mylanta) 30 ml Q4H PRN ORAL heartburn 01/06/20 21:30 02/05/20 21:29 Chlorhexidine Gluconate (Claudine-Hex 2%) 1 applic DAILY@2000 TOPIC 01/08/20 20:00 04/07/20 19:59 01/09/20 20:05 Dextrose (Dextrose 50%) 25 ml Q30M PRN IV Hypoglycemia 01/06/20 21:45 04/03/20 21:14 Dextrose (Dextrose 50%) 50 ml Q30M PRN IV Hypoglycemia 01/06/20 21:45 04/03/20 21:14 Heparin Sodium/ Sodium Chloride (Heparin 1000 units/500ml Premix) 1,000 unit ONCE PRN IV PICC LINE 01/08/20 13:45 01/10/20 13:44 Insulin Aspart (NovoLOG) BEFORE MEALS AND HS SUBQ 01/07/20 06:30 04/04/20 06:29 01/08/20 20:52 Lidocaine HCl (Xylocaine 1% 30ml) 30 ml ONCE PRN INJ PICC LINE 01/08/20 13:45 01/10/20 13:44 Lorazepam (Ativan 2mg/ml 1ml) 1 mg Q1H PRN IV For Seizures 01/06/20 21:30 01/11/20 21:29 Morphine Sulfate (Morphine Sulfate) 2 mg Q3H PRN IVP Moderate Pain (Pain Scale 4-6) 01/09/20 20:15 01/16/20 20:14 Morphine Sulfate (Morphine Sulfate) 4 mg Q3H PRN IVP Severe Pain (Pain Scale 7-10) 01/09/20 20:10 01/16/20 20:09 01/10/20 09:47 Ondansetron HCl (Zofran) 4 mg Q6H PRN IVP Nausea & Vomiting 01/06/20 21:30 02/05/20 21:29 Pantoprazole (Protonix) 40 mg DAILY ORAL 01/07/20 09:00 02/04/20 08:59 01/10/20 08:33 Sodium Chloride 1,000 ml @ 100 mls/hr Q10H IV 01/06/20 21:30 02/03/20 21:59 01/09/20 20:05 Vancomycin HCl (Vanco pharmacy to dose) 1 ea DAILY PRN MISC Per rx protocol 01/07/20 09:00 02/03/20 21:14 Vancomycin/Sodium Chloride 275 ml @ 137.5 mls/ hr Q8H IVPB 01/06/20 22:00 01/15/20 21:59 01/10/20 06:39 Olvin Carbajal MD Jan 10, 2020 11:05"
[2020-01-10] MEDS ORDERED: Doxycycline Monohydrate 100mg ORAL SCH (11:15)
--- NOTE | 2020-01-10 11:53 | NUR ---
NURSE NOTES: Pt refused his insulin and states that he doesn't want to eat lunch prior to his planned DC today. Pt wants to leave now. CM made aware. Dr. Isidro ordered DC to home today with no orders for medication other than medication ordered by Dr. Carbajal for PO Abx.
[2020-01-10] MEDS ORDERED: DOXYCYCLINE MO100 M2 PO (11:56)
--- NOTE | 2020-01-10 12:17 | NUR ---
PLASTIC WORKER NOTE S/W PATIENT AT BEDSIDE IN RE TO OUTPATIENT RESOURCES FOR [facility] TO SEEK FOLLOW UP MEDICAL CARE. PATIENT REFUSED INFORMATION STATING HE KNOWS WHERE HE CAN GO.
--- NOTE | 2020-01-10 12:42 | NUR ---
NURSE NOTES: Pt in stable condition for DC today. Pt is AAO x 4, ambulatory with steady gait. on RA in no apparent respiratory distress. Pt has wound to B feet. RN to change dressings prior to DC but patient refused stating "I'm going to change it myself when I go home." Reconciled belongings with patient and he signed patient belongings list. PICC line removed with rn charge David. Secured PICC line site with dry dressing and tegaderm. Pressure applied. Reassessed site with no s/s of bleeding. Education provided on wound care, diabetes foot care, and infection management. Pt instructed on s/s to report to MD and to f/u with [facility] for follow-up care. Rx was given by CM to patient from Dr. Carbajal. Pt refused [facility] resources. Pt's significant other at bedside and will provide transportation for patient's DC today.
--- NOTE | 2020-01-10 12:59 | Surgery Progress Note ---
Surgery Progress Note Subjective Additional Comments received picc line and plan for home health with abx doing much better no n/v/f/c Objective Last 24 Hour Vital Signs Date Time Temp Pulse Resp B/P (MAP) Pulse Ox O2 Delivery O2 Flow Rate FiO2 01/10/20 09:00 Room Air 01/10/20 08:00 97.9 81 20 146/98 (114) 95 01/10/20 04:00 98.2 77 20 142/98 (113) 95 01/10/20 00:00 97.7 72 20 148/99 (115) 98 01/09/20 21:00 Room Air 01/09/20 20:00 97.7 68 18 138/93 (108) 98 01/09/20 16:00 98.0 66 19 132/91 (105) 100 I&O Intake and Output 01/09/20 01/10/20 19:00 07:00 Intake Total 750 ml 675.0 ml Balance 750 ml 675.0 ml Intake Oral 650 ml IV Total 100 ml 675.0 ml # Voids 1 2 # Bowel Movements 1 Dressing: dry Wound: clean Cardiovascular: RSR Respiratory: clear Abdomen: soft, non-tender, present bowel sounds Extremities: no edema, no tenderness, no cyanosis Laboratory Tests Test 01/09/20 16:54 01/09/20 20:01 01/10/20 05:05 01/10/20 11:32 POC Whole Blood Glucose 107 MG/DL (74-106) H 103 MG/DL (74-106) 143 MG/DL (74-106) H Vancomycin Level Trough 17.0 ug/mL (5.0-12.0) H Plan Problems: (1) Cellulitis of lower extremity Assessment & Plan: left foot with cellulitis. pulses okay. decreased sensation. ulcer on plantar aspect. no abscess. no drainage Pt presented on admission with multiple ulcerations to both feet.Ulcer Plantar L 1st metatarsal has punched out appearance, is michael with dry necrotic borders( L)1cm x (W)0.9cm. No odor or exudate noted. No erythema or fluctuance periwound. Pt stated wound previously had thick callused cap which pt stated he attempted to shave off with Callus removing device. Dry eschar noted to tips of L 2nd 3rd and 4th metatarsals. Dry eschar with slit noted to plantar L Hallux area. NO odor exudate or erythema noted. R 3rd metatarsal with joint deformity and full thickness ulcer at head of metatarsal(L)1.4cm x (W)1.6cm. Base of wound is necrotic centrally with surrounding michael base with scattered necrosis and an area of slough along plantar aspect of metatarsal. Borders are irregular and michael, extending along web space and along plantar aspect to base of metatarsal. No odor or exudate noted during wound assessment but dry exudate noted periwound. Also at base of R3rd metatarsal smaller wound that is michael and moist noted.(L)0.4cm x (W) 0.5cm. Pt stated having wounds for unspecified amt of time. Dry eschar noted to lateral R 1st metatarsal. No erythema ,exudate, or fluctuance periwound. A second,smaller ulcer noted to plantar base of R 1st metatarsal that is moist and michael . No erythema, odor,or fluctuance periwound. Dry eschar noted to plantar R hallux area. Pt cited multiple traumas to both feet over an unspecified period and admits to being lax in care of feet and inspecting his feet despite being aware of risks with Having diabetes and Neuropathy. Pt educated of risks vs benefits of good foot care, wearing proper footwear and inspecting feet daily.Pt also advised against removing calluses with sharp devices. Tx.Plan:Apply Betadine to wounds both feet. Cover with ABD Pads and wrap each foot with Kerlix Daily and prn.3 diet as tolerated strict DM control d/c planning outpatient neuro follow up for further testing picc line abx outpatient f/u with wound care center (2) Alcohol abuse (3) Seizure SrinathAntonio hurley Jan 10, 2020 12:59
--- NOTE | 2020-01-12 17:26 | Discharge Summary ---
Discharge Summary Discharge Summary _ DATE OF ADMISSION: 01/04/2020 DATE OF DISCHARGE: 01/10/2020 DISCHARGED BY: Dr. Isidro REASON FOR ADMISSION: 34 years old male presented to emergency department after suspected seizure. 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 He reported sudden loss of consciousness at work. Patient had no recollection of the event, but he was told by the staff , that he had generalized convulsions for several minutes. Unclear if he had a head injury. Paramedics found him already awake and alert. Patient denied prior history of seizure. Patient did report another loss of consciousness many years ago without any formal diagnosis. Patient admits to drinking alcohol on a daily basis . He was a little on a binge over the past week. Last alcohol intake was about 24 hours ago. He denied prior history of alcohol withdrawal seizure or delirium tremens. Patient also reported ulceration and infection over the right third toe. He did not seek medical attention for this problem. Patient reported that he was prediabetic He denied recent fevers or chills. No cough or shortness of breath. No chest pain. No palpitations. Upon evaluation patient was slightly tachycardic with heart rate 107, blood pressure 129/99 , pulse oximetry was stable on room air , and patient was afebrile. Laboratory work-up revealed no leukocytosis ,hemoglobin 13.8 , hematocrit 40.18. BUN 12 creatinine 1.0. Serum alcohol level was less than 3. AST 113, ALT 70. Urinalysis revealed +3 protein,+3 blood, +1 leukocyte esterase, borderline pyuria and few bacteria. Urine toxicology screen was positive for opiates. EKG revealed sinus tachycardia , no acute ischemic changes. X-ray of the right foot revealed swelling of the third digit with abnormal fragmentation of the third distal phalanx, which may represent sequela of injury or infection/osteomyelitis CT of the head revealed no evidence of acute intracranial hemorrhage mass- effect or cortical edema. Patient subsequently admitted for further management. CONSULTANTS: ID specialist Dr. Carbajal surgery Dr. Rashid HOSPITAL COURSE: Patient admitted to medical surgical floor and started on antibiotic as per ID specialist recommendations. Venous duplex bilateral lower extremity revealed no evidence of acute DVT. MRI of the foot revealed osteomyelitis of the third middle and distal phalanges with extensive cellulitis of the third toe. Wound care provided as per surgeon recommendation. Wound culture revealed MRSA. Blood cultures were negative. Seizure precautions maintained. No evidence of seizure activity while in the hospital. Patient was counseled on abstinence from ETOH. Ativan was on board as needed for breakthrough seizures. Patient started on folic acid and thiamine. DVT and GI prophylaxis provided. Blood sugar was managed with sliding scale of insulin . Patient was discharged on oral doxycycline to complete total course of treatment of 6 weeks as per ID specialist recommendations. FINAL DIAGNOSES: Right third toe cellulitis Right third toe osteomyelitis with MRSA Alcohol-related seizure Possible alcohol withdrawal Diabetes mellitus DISCHARGE MEDICATIONS: See Medication Reconciliation list. DISCHARGE INSTRUCTIONS: Patient was discharged home. Patient was encouraged to complete the treatment of antibiotic as advised. Follow-up with a primary care provider in 1 week. I have been assigned to dictate discharge summary for this account. I was not involved in the patient's management. Eve Matta NP Jan 12, 2020 17:26
== END 2020-01-10 12:51 | disposition home or self-care (01) | DRG 344 ==
LOC: EDBD 15:40 → EMR 16:00 → 2E 17:15 → EDBEDREQ 18:26 → 2E 19:27 → 4E 01-06 21:00
PROC: 02H633Z Insertion of Infusion Device into Right Atrium, Percutaneous Approach (ICD-10-PCS; principal; 2020-01-04)
DX: E11.621 Type 2 diabetes mellitus with foot ulcer (principal); M86.8X7 Other osteomyelitis, ankle and foot; B95.62 Methicillin resistant Staphylococcus aureus infection as the cause of diseases classified elsewhere; L03.116 Cellulitis of left lower limb; E11.40 Type 2 diabetes mellitus with diabetic neuropathy, unspecified; E87.1 Hypo-osmolality and hyponatremia; E11.65 Type 2 diabetes mellitus with hyperglycemia; G40.509 Epileptic seizures related to external causes, not intractable, without status epilepticus; Z87.891 Personal history of nicotine dependence; F10.239 Alcohol dependence with withdrawal, unspecified
CPT/HCPCS: 36415; 36569; 70450; 76937; 80053; 80202; 80307; 81003; 82248; 82962; 85007; 85025; 87040; 87070; 87181; 87205; 93005; 93970; 96365; 96367; 96375; 99291; G0480; J1815; J7030

== ENCOUNTER 2020-05-01 07:51 | Emergency (ER) | payer MEDICAID, OTHER ==
[~2020-05-01] VITALS: Ht 175.3 cm; Wt 90.7 kg
[~2020-05-01 07:51] MED LIST: DOXYCYCLINE MO100 M2 PO
[2020-05-01 08:01] VITALS: BP 130/90
--- NOTE | 2020-05-01 08:03 | NUR ---
ED Nurse Note: Pt arrived by ambulance RA 68, from home, is ax0x4, vitals signs stable as documented on room air, co of pain 5/10 from shoulders and has bleeding from the sides of his tounge, He is dry heaving in triage. He moves all extremities independently and his reathing is even and unlabored.
[2020-05-01 08:13] LABS: HEMATOCRIT 37.9 % (42.0-52.0); HEMOGLOBIN 13.1 G/DL (14.2-18.0); MEAN CORPUSCULAR VOLUME 99 FL (80-99); PLATELET COUNT 50 K/UL (150-450); RED BLOOD COUNT 3.83 M/UL (4.70-6.10); WHITE BLOOD COUNT 3.8 K/UL (4.8-10.8)
[2020-05-01] MEDS ORDERED: LORazepam Inj 2mg/ml 1ml IV ONE (08:15)
[2020-05-01] MEDS ORDERED: Ketorolac 30mg Inj IV ONE (08:15)
--- NOTE | 2020-05-01 08:16 | Emergency Room Report ---
History of Present Illness General Chief Complaint: Seizure Source: Patient Present Illness HPI 35 yo M presents to ED for evaluation. brought in by EMS from home. Witnessed seizure. Found down in the hallway of his house. Patient states that he has not had a seizure in many months. Does not take seizure meds. Was told that if his seizures were due to alcohol. Last drink was last night. Denies drug use. Notes generalized pain. Dull, 10 out of 10, nonradiating. Notes nausea and vomiting. Denies fevers or chills. Denies neck stiffness. No other aggravating relieving factors. Denies any other associated symptoms Allergies: Coded Allergies: No Known Allergies (Unverified , 01/04/20) COVID-19 Screening Contact w/high risk pt: No Experienced COVID-19 symptoms?: No COVID-19 Testing performed BACK OFFICE MEDICAL ASSISTANT: No Patient History Past Medical History: DM, seizures Past Surgical History: none Pertinent Family History: none Social History: Reports: alcohol use; Denies: smoking, drug use Immunizations: UTD Reviewed Nursing Documentation: PMH: Agreed; PSxH: Agreed Nursing Documentation-PMH Past Medical History: No History, Except For Hx Cardiac Problems: No Hx Diabetes: Yes Hx Cancer: No Hx Gastrointestinal Problems: No Hx Neurological Problems: Yes Hx Seizures: Yes Review of Systems All Other Systems: negative except mentioned in HPI Physical Exam Vital Signs Date Time Temp Pulse Resp B/P (MAP) Pulse Ox O2 Delivery O2 Flow Rate FiO2 05/01/20 07:52 99.1 88 17 140/100 (113) 99 Room Air Sp02 EP Interpretation: reviewed, normal General Appearance: no apparent distress, alert, GCS 15, non-toxic Head: normocephalic, atraumatic Eyes: bilateral eye normal inspection, bilateral eye PERRL ENT: hearing grossly normal, normal pharynx, no angioedema, normal voice Neck: full range of motion, supple/symm/no masses Respiratory: chest non-tender, lungs clear, normal breath sounds, speaking full sentences Cardiovascular #1: regular rate, rhythm, no edema Cardiovascular #2: 2+ carotid (R), 2+ carotid (L), 2+ radial (R), 2+ radial (L), 2+ dorsalis pedis (R), 2+ dorsalis pedis (L) Gastrointestinal: normal bowel sounds, non tender, soft, non-distended, no guarding, no rebound Rectal: deferred Genitourinary: normal inspection, no CVA tenderness Musculoskeletal: back normal, normal range of motion, gait/station normal, non- tender Neurologic: alert, motor strength/tone normal, oriented x3, sensory intact, r esponsive, speech normal Psychiatric: judgement/insight normal, memory normal, mood/affect normal, no suicidal/homicidal ideation Reflexes: 3+ bicep (R), 3+ bicep (L), 3+ tricep (R), 3+ tricep (L), 3+ knee (R), 3+ knee (L) Lymphatic: no adenopathy Medical Decision Making Diagnostic Impression: Primary Impression: Alcohol withdrawal Qualified Codes: F10.239 - Alcohol dependence with withdrawal, unspecified Additional Impression: Seizure disorder ER Course Hospital Course 35-year-old male presents status post seizure. History of alcohol use Differential diagnoses include: Alcohol intoxication, drug abuse, opioid withdrawal, alcohol withdrawal, dehydration, drug seeking behavior Clinical course Patient placed on stretcher. On telemetry monitor. After initial history and physical I ordered labs, IV fluids, Ativan, EKG, CT Labs reviewed-electrolytes okay, hemoglobin/hematocrit stable, no leukocytosis, LFTs elevated EKG - NSR no acute ischemic changes interpreted by me CT head no acute process I discussed findings with patient. no signs of acute withdrawal or DTs. patient can be safely discharged to home. Given Librium. Does not have a PMD. I will provide referrals. DMV form submitted i. I feel this is a highly complex case requiring extensive working including EKG/Rhythm strip, Xray/CT/US, Blood/urine lab work, repeat exams while in ED, and administration of strong opiates/narcotics for pain control, admission to hospital or close patient follow up. Diagnosis - alcohol withdrawal, seizure Stable and discharged to home with prescription for Librium Zofran. Followup with PMD. Return to ED if symptoms recur or worsen Laboratory Tests Test 05/01/20 07:55 05/01/20 08:02 White Blood Count 3.8 K/UL (4.8-10.8) L Red Blood Count 3.83 M/UL (4.70-6.10) L Hemoglobin 13.1 G/DL (14.2-18.0) L Hematocrit 37.9 % (42.0-52.0) L Mean Corpuscular Volume 99 FL (80-99) Mean Corpuscular Hemoglobin 34.1 PG (27.0-31.0) H Mean Corpuscular Hemoglobin Concent 34.5 G/DL (32.0-36.0) Red Cell Distribution Width 15.0 % (11.6-14.8) H Platelet Count 50 K/UL (150-450) L Mean Platelet Volume 14.2 FL (6.5-10.1) H Neutrophils (%) (Auto) % (45.0-75.0) Lymphocytes (%) (Auto) % (20.0-45.0) Monocytes (%) (Auto) % (1.0-10.0) Eosinophils (%) (Auto) % (0.0-3.0) Basophils (%) (Auto) % (0.0-2.0) Differential Total Cells Counted 100 Neutrophils % (Manual) 51 % (45-75) Lymphocytes % (Manual) 32 % (20-45) Monocytes % (Manual) 14 % (1-10) H Eosinophils % (Manual) 3 % (0-3) Basophils % (Manual) 0 % (0-2) Band Neutrophils 0 % (0-8) Platelet Estimate Decreased L Platelet Morphology Normal Anisocytosis 1+ Sodium Level 136 MMOL/L (136-145) Potassium Level 3.9 MMOL/L (3.5-5.1) Chloride Level 99 MMOL/L (98-107) Carbon Dioxide Level 22 MMOL/L (21-32) Anion Gap 15 mmol/L (5-15) Blood Urea Nitrogen 27 mg/dL (7-18) H Creatinine 1.3 MG/DL (0.55-1.30) Estimat Glomerular Filtration Rate > 60 mL/min (>60) Glucose Level 197 MG/DL (74-106) H Calcium Level 8.6 MG/DL (8.5-10.1) Total Bilirubin 1.1 MG/DL (0.2-1.0) H Direct Bilirubin 0.5 MG/DL (0.0-0.3) H Aspartate Amino Transf (AST/SGOT) 110 U/L (15-37) H Alanine Aminotransferase (ALT/SGPT) 42 U/L (12-78) Alkaline Phosphatase 238 U/L (46-116) H Total Protein 8.8 G/DL (6.4-8.2) H Albumin 3.9 G/DL (3.4-5.0) Globulin 4.9 g/dL Albumin/Globulin Ratio 0.8 (1.0-2.7) L Salicylates Level < 0.2 ug/mL (2.8-20) L Acetaminophen Level < 2 MCG/ML (10-30) L Serum Alcohol < 3 mg/dL POC Whole Blood Glucose Pending EKG Diagnostic Results Rate: normal Rhythm: NSR ST Segments: no acute changes ASA given to the pt in ED: No Rhythm Strip Diag. Results EP Interpretation: yes Rhythm: NSR, no PVC's, no ectopy CT/MRI/US Diagnostic Results CT/MRI/US Diagnostic Results : Imaging Test Ordered: CT Head Impression Procedure: CT Head no Contrast Indications: Seizure Technique: Spiral acquisitions obtained through the brain. Angled axial and coronal 5 x 5 mm slices were reconstructed. Total dose length product 1152 mGycm. CTDI vol(s) 53 mGy. Dose reduction achieved using automated exposure control Comparison: 01/04/2020 Findings: No acute intracranial hemorrhage or edema, mass effect, nor midline shift. There is mild prominence of the ventricles and extra-axial CSF spaces. Normal nye-white differentiation. Intact calvarium. The mastoids are clear. Visualized orbits and sinuses are unremarkable. No significant interval change Impression: Mildly prominent, for age, ventricles and extra axial CSF spaces. Negative for acute intracranial bleed or mass effect. No significant interval change The CT scanner at [facility] is accredited by the [employer] and the scans are performed using protocols designed to limit radiation exposure to as low as reasonably achievable to attain images of sufficient resolution adequate for diagnostic evaluation. Last Vital Signs Date Time Temp Pulse Resp B/P (MAP) Pulse Ox O2 Delivery O2 Flow Rate FiO2 05/01/20 08:12 88 17 140/100 99 05/01/20 07:52 99.1 Room Air Status: improved Disposition: HOME, SELF-CARE Condition: Stable Scripts Ondansetron Odt* (ZOFRAN ODT*) 4 Mg Tab.rapdis 4 MG BC EVERY 6 HOURS PRN for Nausea & Vomiting, #20 TAB 0 Refills Prov: Angel Tran MD 05/01/20 Chlordiazepoxide (Chlordiazepoxide HCl) 25 Mg Capsule 25 MG ORAL THREE TIMES A DAY, #15 CAP 0 Refills Prov: Angel Tran MD 05/01/20 Angel Tran MD May 01, 2020 08:16
--- NOTE | 2020-05-01 08:21 | NUR ---
ED Nurse Note: pt left for CT
--- NOTE | 2020-05-01 08:31 | NUR ---
ED Nurse Note: pt back from CT
[2020-05-01 08:40] LABS: ALANINE AMINOTRANSFERASE 42 U/L (12-78); ALBUMIN 3.9 G/DL (3.4-5.0); ALBUMIN/GLOBULIN RATIO 0.8 (1.0-2.7); ALKALINE PHOSPHATASE 238 U/L (46-116); ANION GAP 15 mmol/L (5-15); ASPARTATE AMINO TRANSFERASE 110 U/L (15-37); BILIRUBIN,DIRECT 0.5 MG/DL (0.0-0.3); BILIRUBIN,TOTAL 1.1 MG/DL (0.2-1.0); BLOOD UREA NITROGEN 27 mg/dL (7-18); CALCIUM 8.6 MG/DL (8.5-10.1); CARBON DIOXIDE 22 MMOL/L (21-32); CHLORIDE 99 MMOL/L (98-107); CREATININE 1.3 MG/DL (0.55-1.30); POTASSIUM 3.9 MMOL/L (3.5-5.1); SODIUM 136 MMOL/L (136-145)
--- NOTE | 2020-05-01 08:48 | Diagnostic Imaging Report ---
Indications: Seizure Technique: Spiral acquisitions obtained through the brain. Angled axial and coronal 5 x 5 mm slices were reconstructed. Total dose length product 1152 mGycm. CTDI vol(s) 53 mGy. Dose reduction achieved using automated exposure control Comparison: 01/04/2020 Findings: No acute intracranial hemorrhage or edema, mass effect, nor midline shift. There is mild prominence of the ventricles and extra-axial CSF spaces. Normal nye-white differentiation. Intact calvarium. The mastoids are clear. Visualized orbits and sinuses are unremarkable. No significant interval change Impression: Mildly prominent, for age, ventricles and extra axial CSF spaces. Negative for acute intracranial bleed or mass effect. No significant interval change The CT scanner at [facility] is accredited by the [employer] and the scans are performed using protocols designed to limit radiation exposure to as low as reasonably achievable to attain images of sufficient resolution adequate for diagnostic evaluation.
[2020-05-01] MEDS ORDERED: chlordiazePOXIDE 25mg Cap ORAL ONE (09:15)
[2020-05-01] MEDS ORDERED: LIBRIUM25 MG ORAL (09:18)
[2020-05-01] MEDS ORDERED: ONDANSETRON ODT4 MG BC (09:18)
--- NOTE | 2020-05-01 09:32 | NUR ---
ER DISCHARGE NOTE: Patient is cleared to be discharged per ERMD, pt is aox4, on room air, with stable vital signs. pt was given dc and prescription instructions, pt was able to verbalize understanding, pt id band and iv site removed without complications. pt is able to ambulate with steady gait. pt took all belongings.
[2020-05-01 09:33] VITALS: BP 133/100
--- NOTE | 2020-05-04 13:07 | Cardiology Report ---
APPROVED REPORT EKG Measurement Heart [id number] <Conclusion> Normal sinus rhythm Minimal voltage criteria for LVH, may be normal variant Borderline ECG
== END 2020-05-01 09:32 | disposition home or self-care (01) ==
LOC: EDBD 07:51 → EMR 08:20
DX: F10.239 Alcohol dependence with withdrawal, unspecified (principal); G40.909 Epilepsy, unspecified, not intractable, without status epilepticus; E11.9 Type 2 diabetes mellitus without complications; Y90.0 Blood alcohol level of less than 20 mg/100 ml
CPT/HCPCS: 36415; 70450; 80053; 82248; 82962; 85007; 85025; 93005; 96361; 96374; 96375; G0480; G0481; J1885; J2405; J7030; Z7502; 99284